=== PATIENT | male | born 1950 | race Caucasian/White ===

== ENCOUNTER 2020-12-03 19:43 | Inpatient (IN) | payer MEDICAID ==
[~2020-12-03] VITALS: Ht 170.2 cm; Wt 74.8 kg
--- NOTE | 2020-12-03 19:56 | Emergency Room Report ---
History of Present Illness General Chief Complaint: To Be Triaged Source: Patient Present Illness HPI 69-year-old male with past medical history of neuropathy presents to the emergency department, brought in by ambulance, for chief complaint of left leg swelling and rash. Patient states that the rash started 3 weeks ago, however the last few days has become more swollen, red, and hot. He endorses chills but denies any fevers, nausea, vomiting, diarrhea, back pain, abdominal pain, chest pain, shortness of breath, melena, hematochezia. He denies injection drug use, trauma or any other issue. Last tetanus shot is unknown. Patient states that he had calf pain in the left leg so was difficult for him to walk. He is unsure of whether he has had previous history of blood clot The patient's symptoms were gradual onset, severity was moderate, duration since 2 days. Quality: Aching, swollen, warm Past medical history: Neuropathy Past surgical history: Orthopedic shoulder surgery Smoking: Denies Alcohol use: Denies Drug use: Denies Review of systems: CONST: No fevers or chills, No night sweats PULMONARY: No productive cough, No shortness of breath CARDIAC: No chest pain, No palpitations GI: No vomiting, No diarrhea , No melena_or_BRBPR : No dysuria, No hematuria, No discharge NEURO: No new_focal_weakness_or_numbness, No confusion, No vision changes 14 point Review of Systems is otherwise negative except per HPI Physical Exam: GENERAL: Awake_alert_ nontoxic, no acute distress Spo2 98% on RA -normal EYES: Extraocular muscles are intact. Conjunctivae clear. Lids without swelling ENT: External nose and ear normal_in_appearance. Oropharynx clear. Head_atrauma tic, Moist_oral_mucosa NECK: No JVD. No meningismus. No thyromegaly. Supple. Trachea midline RESP: Normal respiratory effort. Symmetric rise. No stridor. Clear_to_auscultation_No_rales_No_wheezes CARDIAC: Regular rate and regular rhytm. No_significant pedal edema. ABDOMEN: Soft. Nondistended. Nontender_No_rebound_or_guarding. MSK: Normal muscle tone, without rigidity. SKIN: Left lower extremity swelling and warmth. There is cellulitis to the left mid tibia with open lesion. No palpable crepitus. Positive Homans' sign Otherwise warm and dry. No visible cyanosis or pallor NEUROLOGIC: Alert, oriented x3. Motor_and_sensation_grossly_intact. No truncal ataxia. Gait_normal Psych: Normal mood and affect, normal judgment and insight - COORDINATION OF CARE Case was discussed with: Patient Any labs and imaging that were ordered were interpreted as part of the medical decision making: Medical Decision Making/Plan: Differential diagnosis includes musculoskeletal pain, fracture, dislocation, soft tissue infection such as cellulitis or abscess, necrotizing fasciitis, compartment syndrome, septic arthritis, arterial occlusion, deep venous thrombosis, among others. Patient is afebrile and hemodynamically stable, neurologically intact on examination. He has notable swelling to the left lower extremity, with cellulitis, and draining superficial cutaneous abscess. There is no palpable crepitus. Distally the patient has capillary refill <2 seconds and strong pulses. There is no pallor or pain out of proportion to exam. There is no crepitus or pain out of proportion to exam and the patient is afebrile and nontoxic. No evidence of septic arthritis, necrotizing fasciitis. Tdap was updated. Patient received at broad-spectrum antibiotics. Care signed out to Dr Nino @ 2100 pending labs and duplex ultrasound. Allergies: Coded Allergies: No Known Allergies (Unverified , 12/03/20) Physical Exam Sp02 EP Interpretation: reviewed, normal Medical Decision Making Diagnostic Impression: Primary Impression: Lower extremity cellulitis EKG Diagnostic Results Troponin ordered: Yes When was troponin ordered?: Dec 03, 2020 PA Scribe Text 12-lead EKG (interpreted by me) Time: 2044 Indication: Rhythm analysis Tracing visualized and Interpreted by me. Rhythm: Normal sinus rhythm Rate: 95 bpm QTc: 417 Morphology: No_significant_ST_elevations_or_depressions, No STEMI Impression: Normal_sinus_rhythm_without_significant_abnormality Admit Decision Time: 21:00 Condition: Stable Signed Out To: Marleny Henriquez D.O. Dec 03, 2020 19:56
[2020-12-03] MEDS ORDERED: Cefepime HCl 2 GM in NS 110 ML IV ONE (20:00)
[2020-12-03] MEDS ORDERED: Tetanus/Diptheria/Pertussis IM ONE (20:00)
[2020-12-03] MEDS ORDERED: Acetaminophen 500mg (ES) tab ORAL ONE (20:00)
[2020-12-03] MEDS ORDERED: Vancomycin 1 GM in NS 275 ML IV ONE (20:00)
[2020-12-03] MEDS ORDERED: Sodium Chloride 2,200 ML IVLG ONE (20:00)
--- NOTE | 2020-12-03 20:00 | NUR ---
ED Nurse Note: Patient LAUREN, per EMS, pt called 911 complaining of left leg pain, swelling and redness. Patient is AOx4. calm and cooperative.
[2020-12-03 21:30] LABS: HEMATOCRIT 40.4 % (42.0-52.0); HEMOGLOBIN 13.4 G/DL (14.2-18.0); MEAN CORPUSCULAR VOLUME 91 FL (80-99); PLATELET COUNT 241 K/UL (150-450); RED BLOOD COUNT 4.46 M/UL (4.70-6.10); RED CELL DISTRIBUTION WIDTH 13.5 % (11.6-14.8); WHITE BLOOD COUNT 17.4 K/UL (4.8-10.8)
[2020-12-03 21:31] LABS: BASOPHILS % (AUTO) 0.6 % (0.0-2.0); EOSINOPHILS % (AUTO) 0.2 % (0.0-3.0); LYMPHOCYTES % (AUTO) 6.3 % (20.0-45.0); MONOCYTES % (AUTO) 6.8 % (1.0-10.0); NEUTROPHILS % (AUTO) 86.1 % (45.0-75.0)
[2020-12-03 21:43] LABS: ANION GAP 7 mmol/L (5-15); BLOOD UREA NITROGEN 17 mg/dL (7-18); CALCIUM 9.2 MG/DL (8.5-10.1); CARBON DIOXIDE 29 MMOL/L (21-32); CHLORIDE 102 MMOL/L (98-107); CREATININE 0.8 MG/DL (0.55-1.30); POTASSIUM 3.8 MMOL/L (3.5-5.1); SODIUM 138 MMOL/L (136-145)
[2020-12-03 21:54] LABS: ALANINE AMINOTRANSFERASE 26 U/L (12-78); ALBUMIN 3.5 G/DL (3.4-5.0); ALBUMIN/GLOBULIN RATIO 0.8 (1.0-2.7); ALKALINE PHOSPHATASE 114 U/L (46-116); ASPARTATE AMINO TRANSFERASE 22 U/L (15-37); BILIRUBIN,TOTAL 0.7 MG/DL (0.2-1.0)
--- NOTE | 2020-12-03 22:27 | Diagnostic Imaging Report ---
EXAM: US Duplex Left Lower Extremity Veins CLINICAL HISTORY: DVT TECHNIQUE: Real-time duplex ultrasound scan of the left lower extremity veins integrating B-mode two-dimensional vascular structure, Doppler spectral analysis, color flow Doppler imaging and compression. COMPARISON: No relevant prior studies available. FINDINGS: Deep veins: Unremarkable. No DVT in the visualized common femoral, femoral, proximal deep femoral or popliteal veins. The veins demonstrate normal color flow, are normally compressible, with normal phasic flow and/or augmentation response. Superficial veins: Unremarkable. No thrombus in the visualized great saphenous vein. Soft tissues: Subcutaneous edema. No popliteal cyst. IMPRESSION: 1. No DVT. 2. Subcutaneous edema.
[2020-12-03 22:39] VITALS: BP 117/64
--- NOTE | 2020-12-04 | NUR ---
ED Nurse Note: Patient is resting in bed with eyes closed. No acute distress. Vital signs within normal limits, will continue to monitor.
[2020-12-04 00:21] VITALS: BP 101/56
--- NOTE | 2020-12-04 01:45 | NUR ---
NURSE NOTES: Received report from ER nurse, awaiting patient transfer.
--- NOTE | 2020-12-04 01:55 | NUR ---
TRANSFER TO FLOOR: Patient transferred to as ordered, per Dr. Nino. Report given to NATHANIEL Torres. Belongings given to patient.
--- NOTE | 2020-12-04 02:00 | NUR ---
NURSE NOTES: Patient arrived on floor with belongings. Patient is alert and oriented. Admission orders entered and carried out. Will continue to monitor.
[2020-12-04 04:00] VITALS: BP 107/60
--- NOTE | 2020-12-04 07:18 | NUR ---
NURSE HAND-OFF: Important Events on Shift: New admission Patient Status: sleeping Diet: mechanical soft easy chew Pending Orders: Pending Results/Labs: Pending MD notification: Latest Vital Signs: Temperature 98.7 , Pulse 95 , B/P 107 /60 , Respiratory Rate 20 , O2 SAT 98 , Simple Mask, O2 Flow Rate . Vital Sign Comment: VSS Latest Batista Fall Score: 20 Fall Risk: Low Risk Safety Measures: Call light Within Reach, Bed Alarm , Side Rails Side Rails x2, Bed position Low and Locked. Fall Precautions: Yellow Socks Patient Fall Education Report given to NATHANIEL Posadas.
[2020-12-04 07:22] LABS: HEMATOCRIT 38.2 % (42.0-52.0); HEMOGLOBIN 12.4 G/DL (14.2-18.0); MEAN CORPUSCULAR VOLUME 92 FL (80-99); PLATELET COUNT 212 K/UL (150-450); RED BLOOD COUNT 4.15 M/UL (4.70-6.10); RED CELL DISTRIBUTION WIDTH 14.1 % (11.6-14.8); WHITE BLOOD COUNT 15.4 K/UL (4.8-10.8)
[2020-12-04 07:45] LABS: ALANINE AMINOTRANSFERASE 28 U/L (12-78); ALBUMIN/GLOBULIN RATIO 0.8 (1.0-2.7); ALKALINE PHOSPHATASE 93 U/L (46-116); ANION GAP 5 mmol/L (5-15); ASPARTATE AMINO TRANSFERASE 25 U/L (15-37); BILIRUBIN,TOTAL 0.9 MG/DL (0.2-1.0); BLOOD UREA NITROGEN 15 mg/dL (7-18); CALCIUM 8.3 MG/DL (8.5-10.1); CARBON DIOXIDE 30 MMOL/L (21-32); CHLORIDE 104 MMOL/L (98-107); CREATININE 0.9 MG/DL (0.55-1.30); POTASSIUM 3.9 MMOL/L (3.5-5.1); SODIUM 139 MMOL/L (136-145)
[2020-12-04 08:00] VITALS: BP 112/57
--- NOTE | 2020-12-04 08:37 | Consultation ---
History of Present Illness General Date patient seen: Dec 04, 2020 Present Illness Allergies: Coded Allergies: No Known Allergies (Unverified , 12/03/20) Patient History Healthcare decision maker Resuscitation status Advanced Directive on File Physical Exam Last 24 Hour Vital Signs Date Time Temp Pulse Resp B/P (MAP) Pulse Ox O2 Delivery O2 Flow Rate FiO2 12/04/20 04:00 98.7 95 20 107/60 (76) 98 12/04/20 03:10 Room Air 12/04/20 00:21 99.4 16 101/56 99 Simple Mask 12/03/20 22:39 100.8 18 117/64 100 Room Air 12/03/20 19:52 99.9 104 18 110/54 (72) 98 Room Air Intake and Output 12/03/20 12/04/20 19:00 07:00 Intake Total 200 ml Output Total 100 ml Balance 100 ml Intake Oral 200 ml Output Urine Total 100 ml # Voids 1 Laboratory Tests Test 12/03/20 21:15 12/04/20 06:10 White Blood Count 17.4 K/UL (4.8-10.8) H 15.4 K/UL (4.8-10.8) H Red Blood Count 4.46 M/UL (4.70-6.10) L 4.15 M/UL (4.70-6.10) L Hemoglobin 13.4 G/DL (14.2-18.0) L 12.4 G/DL (14.2-18.0) L Hematocrit 40.4 % (42.0-52.0) L 38.2 % (42.0-52.0) L Mean Corpuscular Volume 91 FL (80-99) 92 FL (80-99) Mean Corpuscular Hemoglobin 30.0 PG (27.0-31.0) 30.0 PG (27.0-31.0) Mean Corpuscular Hemoglobin Concent 33.1 G/DL (32.0-36.0) 32.5 G/DL (32.0-36.0) Red Cell Distribution Width 13.5 % (11.6-14.8) 14.1 % (11.6-14.8) Platelet Count 241 K/UL (150-450) 212 K/UL (150-450) Mean Platelet Volume 6.4 FL (6.5-10.1) L 7.1 FL (6.5-10.1) Neutrophils (%) (Auto) 86.1 % (45.0-75.0) H % (45.0-75.0) Lymphocytes (%) (Auto) 6.3 % (20.0-45.0) L % (20.0-45.0) Monocytes (%) (Auto) 6.8 % (1.0-10.0) % (1.0-10.0) Eosinophils (%) (Auto) 0.2 % (0.0-3.0) % (0.0-3.0) Basophils (%) (Auto) 0.6 % (0.0-2.0) % (0.0-2.0) Prothrombin Time 11.4 SEC (9.30-11.50) Prothromb Time International Ratio 1.0 (0.9-1.1) Activated Partial Thromboplast Time 27 SEC (23-33) Sodium Level 138 MMOL/L (136-145) 139 MMOL/L (136-145) Potassium Level 3.8 MMOL/L (3.5-5.1) 3.9 MMOL/L (3.5-5.1) Chloride Level 102 MMOL/L (98-107) 104 MMOL/L (98-107) Carbon Dioxide Level 29 MMOL/L (21-32) 30 MMOL/L (21-32) Anion Gap 7 mmol/L (5-15) 5 mmol/L (5-15) Blood Urea Nitrogen 17 mg/dL (7-18) 15 mg/dL (7-18) Creatinine 0.8 MG/DL (0.55-1.30) 0.9 MG/DL (0.55-1.30) Estimat Glomerular Filtration Rate > 60 mL/min (>60) > 60 mL/min (>60) Glucose Level 103 MG/DL (74-106) 92 MG/DL (74-106) Lactic Acid Level 0.80 mmol/L (0.4-2.0) Calcium Level 9.2 MG/DL (8.5-10.1) 8.3 MG/DL (8.5-10.1) L Total Bilirubin 0.7 MG/DL (0.2-1.0) 0.9 MG/DL (0.2-1.0) Aspartate Amino Transf (AST/SGOT) 22 U/L (15-37) 25 U/L (15-37) Alanine Aminotransferase (ALT/SGPT) 26 U/L (12-78) 28 U/L (12-78) Alkaline Phosphatase 114 U/L (46-116) 93 U/L (46-116) Pro-B-Type Natriuretic Peptide 117 pg/mL (0-125) Total Protein 7.7 G/DL (6.4-8.2) 7.0 G/DL (6.4-8.2) Albumin 3.5 G/DL (3.4-5.0) 3.0 G/DL (3.4-5.0) L Globulin 4.2 g/dL 4.0 g/dL Albumin/Globulin Ratio 0.8 (1.0-2.7) L 0.8 (1.0-2.7) L Neutrophils % (Manual) Pending Lymphocytes % (Manual) Pending Platelet Estimate Pending Platelet Morphology Pending Microbiology Date/Time Source Procedure Growth Status 12/04/20 01:55 Rectal Mucosa Received Height (Feet): 5 Height (Inches): 7.00 Weight (Pounds): 165 Medications Current Medications Medications (Trade) Dose Ordered Sig/Jeny Route PRN Reason Start Time Stop Time Status Last Admin Dose Admin Acetaminophen (Tylenol) 500 mg Q4H PRN ORAL Temp >100.5/mild pain 1-3 12/04/20 00:00 01/03/21 00:00 Assessment/Plan Assessment/Plan: (1) Left LE pain (2) Cellulitis seen dictated Serafin Grubbs Dec 04, 2020 08:37
--- NOTE | 2020-12-04 11:21 | Consultation ---
History of Present Illness General Date patient seen: Dec 04, 2020 Reason for Hospitalization: Lower Extremity Injury Present Illness HPI this is a pleasant 69-year-old male with past medical history of neuropathy in lower extremities for many years who presents to the emergency department at [facility] brought in by ambulance for chief complaint of left leg swelling and rash. Patient states that the rash started 3 weeks ago, however the last few days has become more swollen, red, and hot. He endorses chills but denies any fevers, nausea, vomiting, diarrhea, back pain, abdominal pain, chest pain, shortness of breath, melena, hematochezia. He denies injection drug use, trauma or any other issue. Last tetanus shot is unknown. Patient states that he had calf pain in the left leg so was difficult for him to walk. He is unsure of whether he has had previous history of blood clot. The patient's symptoms were gradual onset, severity was moderate, duration since 2 days. Patient states that he is homeless and is very difficult for her to take care of himself with such problems therefore he came in for evaluation. No nausea vomiting fever chills. Denies any trauma. States that he is unsure if there is an ulcer as it is difficult for him to evaluate or care for the wound currently. Surgery called to evaluate assist with care patient seen patient evaluated chart reviewed Allergies: Coded Allergies: No Known Allergies (Unverified , 12/03/20) COVID-19 Screening Contact w/high risk pt: No Experienced COVID-19 symptoms?: No Patient History History Provided By: Patient, Medical Record, PMD Healthcare decision maker Resuscitation status Advanced Directive on File Past Medical/Surgical History Past Medical/Surgical History: (1) Injury of lower extremity (2) Lower extremity cellulitis Review of Systems Review of Symptoms General ROS: no weight loss or fever Psychological ROS: no depression or mood changes, no memory loss Ophthalmic ROS: no visual changes or eye irritation ENT ROS: no nasal congestion, hearing loss, dizziness Allergy and Immunology ROS: no allergic symptoms or urticaria Hematological and Lymphatic ROS: no swollen glands, unusual bleeding or bruising Endocrine ROS: no polyuria, polydipsia, weight changes, temperature intolerance Respiratory ROS: no cough, shortness of breath, or wheezing Cardiovascular ROS: no chest pain or dyspnea on exertion Gastrointestinal ROS: denies abdominal pain, bright red blood in stool. Musculoskeletal ROS: no myalgias or arthralgias Neurological ROS: no TIA or stroke symptoms Dermatological ROS: no new or changing skin lesions, rashes or pruritis Physical Exam Physical Exam General appearance: alert, cooperative, no distress, appears stated age Head: Normocephalic, without obvious abnormality, atraumatic Eyes: conjunctivae/corneas clear. PERRL, EOM's intact. Fundi benign Throat: Lips, mucosa, and tongue normal. Teeth and gums normal Neck: supple, symmetrical, trachea midline, no adenopathy, thyroid: not enlarged, symmetric, no tenderness/mass/nodules, no carotid bruit and no JVD Lungs: clear to auscultation bilaterally Heart: regular rate and rhythm, S1, S2 normal, no murmur, click, rub or gallop Abdomen: soft, non-tender. Bowel sounds normal. No masses, no organomegaly Extremities: extremities left lower extremity cellulitis and edema also noted medial aspect Pulses: 2+ and symmetric Skin: Skin color, texture, turgor normal. No rashes or lesions Neurologic: Grossly normal Last 24 Hour Vital Signs Date Time Temp Pulse Resp B/P (MAP) Pulse Ox O2 Delivery O2 Flow Rate FiO2 12/04/20 04:00 98.7 95 20 107/60 (76) 98 12/04/20 03:10 Room Air 12/04/20 00:21 99.4 16 101/56 99 Simple Mask 12/03/20 22:39 100.8 18 117/64 100 Room Air 12/03/20 19:52 99.9 104 18 110/54 (72) 98 Room Air Intake and Output 12/03/20 12/04/20 19:00 07:00 Intake Total 200 ml Output Total 100 ml Balance 100 ml Intake Oral 200 ml Output Urine Total 100 ml # Voids 1 Laboratory Tests Test 12/03/20 21:15 12/04/20 06:10 White Blood Count 17.4 K/UL (4.8-10.8) H 15.4 K/UL (4.8-10.8) H Red Blood Count 4.46 M/UL (4.70-6.10) L 4.15 M/UL (4.70-6.10) L Hemoglobin 13.4 G/DL (14.2-18.0) L 12.4 G/DL (14.2-18.0) L Hematocrit 40.4 % (42.0-52.0) L 38.2 % (42.0-52.0) L Mean Corpuscular Volume 91 FL (80-99) 92 FL (80-99) Mean Corpuscular Hemoglobin 30.0 PG (27.0-31.0) 30.0 PG (27.0-31.0) Mean Corpuscular Hemoglobin Concent 33.1 G/DL (32.0-36.0) 32.5 G/DL (32.0-36.0) Red Cell Distribution Width 13.5 % (11.6-14.8) 14.1 % (11.6-14.8) Platelet Count 241 K/UL (150-450) 212 K/UL (150-450) Mean Platelet Volume 6.4 FL (6.5-10.1) L 7.1 FL (6.5-10.1) Neutrophils (%) (Auto) 86.1 % (45.0-75.0) H % (45.0-75.0) Lymphocytes (%) (Auto) 6.3 % (20.0-45.0) L % (20.0-45.0) Monocytes (%) (Auto) 6.8 % (1.0-10.0) % (1.0-10.0) Eosinophils (%) (Auto) 0.2 % (0.0-3.0) % (0.0-3.0) Basophils (%) (Auto) 0.6 % (0.0-2.0) % (0.0-2.0) Prothrombin Time 11.4 SEC (9.30-11.50) Prothromb Time International Ratio 1.0 (0.9-1.1) Activated Partial Thromboplast Time 27 SEC (23-33) Sodium Level 138 MMOL/L (136-145) 139 MMOL/L (136-145) Potassium Level 3.8 MMOL/L (3.5-5.1) 3.9 MMOL/L (3.5-5.1) Chloride Level 102 MMOL/L (98-107) 104 MMOL/L (98-107) Carbon Dioxide Level 29 MMOL/L (21-32) 30 MMOL/L (21-32) Anion Gap 7 mmol/L (5-15) 5 mmol/L (5-15) Blood Urea Nitrogen 17 mg/dL (7-18) 15 mg/dL (7-18) Creatinine 0.8 MG/DL (0.55-1.30) 0.9 MG/DL (0.55-1.30) Estimat Glomerular Filtration Rate > 60 mL/min (>60) > 60 mL/min (>60) Glucose Level 103 MG/DL (74-106) 92 MG/DL (74-106) Lactic Acid Level 0.80 mmol/L (0.4-2.0) Calcium Level 9.2 MG/DL (8.5-10.1) 8.3 MG/DL (8.5-10.1) L Total Bilirubin 0.7 MG/DL (0.2-1.0) 0.9 MG/DL (0.2-1.0) Aspartate Amino Transf (AST/SGOT) 22 U/L (15-37) 25 U/L (15-37) Alanine Aminotransferase (ALT/SGPT) 26 U/L (12-78) 28 U/L (12-78) Alkaline Phosphatase 114 U/L (46-116) 93 U/L (46-116) Pro-B-Type Natriuretic Peptide 117 pg/mL (0-125) Total Protein 7.7 G/DL (6.4-8.2) 7.0 G/DL (6.4-8.2) Albumin 3.5 G/DL (3.4-5.0) 3.0 G/DL (3.4-5.0) L Globulin 4.2 g/dL 4.0 g/dL Albumin/Globulin Ratio 0.8 (1.0-2.7) L 0.8 (1.0-2.7) L Differential Total Cells Counted 100 Neutrophils % (Manual) 87 % (45-75) H Lymphocytes % (Manual) 5 % (20-45) L Monocytes % (Manual) 8 % (1-10) Eosinophils % (Manual) 0 % (0-3) Basophils % (Manual) 0 % (0-2) Band Neutrophils 0 % (0-8) Platelet Estimate Adequate Platelet Morphology Normal Anisocytosis 1+ Microbiology Date/Time Source Procedure Growth Status 12/04/20 01:55 Rectal Mucosa Received Height (Feet): 5 Height (Inches): 7.00 Weight (Pounds): 165 Medications Current Medications Medications (Trade) Dose Ordered Sig/Jeyn Route PRN Reason Start Time Stop Time Status Last Admin Dose Admin Acetaminophen (Tylenol) 500 mg Q4H PRN ORAL Temp >100.5/mild pain 1-3 12/04/20 00:00 01/03/21 00:00 Assessment/Plan Problem List: (1) Injury of lower extremity ICD Codes: S89.90XA - Unspecified injury of unspecified lower leg, initial encounter SNOMED: 008963958 (2) Lower extremity cellulitis Assessment & Plan: Very pleasant 70-year-old male with worsening left lower extremity cellulitis edema and identifiable ulcer on the medial aspect. Patient denies any trauma and unsure etiology of ulcer but on the medial aspect of the distal leg there is a 3 cm x 4 cm eschar with no abscess no drainage. Wound likely initial etiology of the infection potentially related to trauma. Patient has erythema tenderness warmth induration of the distal leg to the ankle. The foot seems fairly spared. Midpoint apex seems to be the wound identified on the medial aspect. Does not track higher than the mid leg. Tender difficult to walk muscle compartments okay. Wound washed with normal saline. Apply Thera honey Optifoam dressing. Keep lower extremity elevated while in bed. Okay to ambulate. IV antibiotics per PCP or infectious disease. Will need some time for resolving cellulitis. No abscess noted at this time. No surgical intervention planned. Will monitor for potential abscess formation phlegmon. Thank you for let me participate in patient's care will follow with recommendations. ICD Codes: L03.119 - Cellulitis of unspecified part of limb SNOMED: [id number] AdalbertoshmuelVaughn Dec 04, 2020 11:21
[2020-12-04 12:00] VITALS: BP 121/66
--- NOTE | 2020-12-04 13:52 | Cardiac Electrophysiology PN ---
Subjective Subjective [id number] Objective Last 24 Hour Vital Signs Date Time Temp Pulse Resp B/P (MAP) Pulse Ox O2 Delivery O2 Flow Rate FiO2 12/04/20 04:00 98.7 95 20 107/60 (76) 98 12/04/20 03:10 Room Air 12/04/20 00:21 99.4 16 101/56 99 Simple Mask 12/03/20 22:39 100.8 18 117/64 100 Room Air 12/03/20 19:52 99.9 104 18 110/54 (72) 98 Room Air Intake and Output 12/03/20 12/04/20 19:00 07:00 Intake Total 200 ml Output Total 100 ml Balance 100 ml Intake Oral 200 ml Output Urine Total 100 ml # Voids 1 Laboratory Tests Test 12/03/20 21:15 12/04/20 06:10 White Blood Count 17.4 K/UL (4.8-10.8) H 15.4 K/UL (4.8-10.8) H Red Blood Count 4.46 M/UL (4.70-6.10) L 4.15 M/UL (4.70-6.10) L Hemoglobin 13.4 G/DL (14.2-18.0) L 12.4 G/DL (14.2-18.0) L Hematocrit 40.4 % (42.0-52.0) L 38.2 % (42.0-52.0) L Mean Corpuscular Volume 91 FL (80-99) 92 FL (80-99) Mean Corpuscular Hemoglobin 30.0 PG (27.0-31.0) 30.0 PG (27.0-31.0) Mean Corpuscular Hemoglobin Concent 33.1 G/DL (32.0-36.0) 32.5 G/DL (32.0-36.0) Red Cell Distribution Width 13.5 % (11.6-14.8) 14.1 % (11.6-14.8) Platelet Count 241 K/UL (150-450) 212 K/UL (150-450) Mean Platelet Volume 6.4 FL (6.5-10.1) L 7.1 FL (6.5-10.1) Neutrophils (%) (Auto) 86.1 % (45.0-75.0) H % (45.0-75.0) Lymphocytes (%) (Auto) 6.3 % (20.0-45.0) L % (20.0-45.0) Monocytes (%) (Auto) 6.8 % (1.0-10.0) % (1.0-10.0) Eosinophils (%) (Auto) 0.2 % (0.0-3.0) % (0.0-3.0) Basophils (%) (Auto) 0.6 % (0.0-2.0) % (0.0-2.0) Prothrombin Time 11.4 SEC (9.30-11.50) Prothromb Time International Ratio 1.0 (0.9-1.1) Activated Partial Thromboplast Time 27 SEC (23-33) Sodium Level 138 MMOL/L (136-145) 139 MMOL/L (136-145) Potassium Level 3.8 MMOL/L (3.5-5.1) 3.9 MMOL/L (3.5-5.1) Chloride Level 102 MMOL/L (98-107) 104 MMOL/L (98-107) Carbon Dioxide Level 29 MMOL/L (21-32) 30 MMOL/L (21-32) Anion Gap 7 mmol/L (5-15) 5 mmol/L (5-15) Blood Urea Nitrogen 17 mg/dL (7-18) 15 mg/dL (7-18) Creatinine 0.8 MG/DL (0.55-1.30) 0.9 MG/DL (0.55-1.30) Estimat Glomerular Filtration Rate > 60 mL/min (>60) > 60 mL/min (>60) Glucose Level 103 MG/DL (74-106) 92 MG/DL (74-106) Lactic Acid Level 0.80 mmol/L (0.4-2.0) Calcium Level 9.2 MG/DL (8.5-10.1) 8.3 MG/DL (8.5-10.1) L Total Bilirubin 0.7 MG/DL (0.2-1.0) 0.9 MG/DL (0.2-1.0) Aspartate Amino Transf (AST/SGOT) 22 U/L (15-37) 25 U/L (15-37) Alanine Aminotransferase (ALT/SGPT) 26 U/L (12-78) 28 U/L (12-78) Alkaline Phosphatase 114 U/L (46-116) 93 U/L (46-116) Pro-B-Type Natriuretic Peptide 117 pg/mL (0-125) Total Protein 7.7 G/DL (6.4-8.2) 7.0 G/DL (6.4-8.2) Albumin 3.5 G/DL (3.4-5.0) 3.0 G/DL (3.4-5.0) L Globulin 4.2 g/dL 4.0 g/dL Albumin/Globulin Ratio 0.8 (1.0-2.7) L 0.8 (1.0-2.7) L Differential Total Cells Counted 100 Neutrophils % (Manual) 87 % (45-75) H Lymphocytes % (Manual) 5 % (20-45) L Monocytes % (Manual) 8 % (1-10) Eosinophils % (Manual) 0 % (0-3) Basophils % (Manual) 0 % (0-2) Band Neutrophils 0 % (0-8) Platelet Estimate Adequate Platelet Morphology Normal Anisocytosis 1+ Microbiology Date/Time Source Procedure Growth Status 12/04/20 01:55 Rectal Mucosa Received Damon Abraham MD Dec 04, 2020 13:52
--- NOTE | 2020-12-04 14:14 | Consultation ---
DATE OF CONSULTATION: 12/04/2020 INFECTIOUS DISEASES CONSULTATION CONSULTING PHYSICIAN: Donte Blum MD PRIMARY ATTENDING PHYSICIAN: Surekha Aguilar MD REASON FOR CONSULTATION: Left leg cellulitis and sepsis. HISTORY OF PRESENT ILLNESS: This is a 70-year-old white male admitted yesterday complaining of left leg swelling, redness, hotness, rash. The patient had couple of weeks of the symptoms but it increased especially pain. The patient has leukocytosis of 17.4 in the ER and had fever up to 100.8, had tachycardia 104. PAST MEDICAL HISTORY: Chronic neuropathy of legs and chronic back pain likely secondary to disk disorder. He is homeless. ALLERGIES: No known drug allergies. MEDICATIONS: Get a dose of vancomycin and cefepime in the ER last night. Currently on Tylenol. SOCIAL HISTORY: Single. Homeless. Denies alcohol, drug abuse, or smoking. REVIEW OF SYSTEMS: As per history of present illness. PHYSICAL EXAMINATION: VITAL SIGNS: Temperature 98.7, pulse 95, blood pressure 107/60. GENERAL APPEARANCE: No acute distress. Seems to have normal weight. HEAD AND NECK: He has poor dentition. HEART: Normal rate. LUNGS: Clear. ABDOMEN: Soft. EXTREMITIES: Edema, erythema in the left leg. There is a scab in the inner surface of the left leg without discharge. NEUROLOGIC: Awake, alert, oriented x3. LABORATORY AND DIAGNOSTIC DATA: WBC 15.4, hemoglobin 12.4, hematocrit 38.2, platelets 212. Sodium 139, potassium 3.9, chloride 104, bicarb 30, BUN 15, creatinine 0.9, glucose 92. Venous duplex of legs did not show any DVT. IMPRESSION: Sepsis with fever, leukocytosis, and tachycardia. Seems to have cellulitis of left leg that is mostly nonpurulent, has chronic neuropathy, has BPH. He is homeless. RECOMMENDATION: Continue vancomycin. We will follow up clinical course and cultures. At the end of my exam, I thank Dr. Aguilar, for involving me in the care of this patient. Donte Blum M.D. DR: Patel JOB#: [id number] CC: GUSTAVO
[2020-12-04 16:00] VITALS: BP 110/64
[2020-12-04] MEDS: Vancomycin 750 MG in NS 275 ML IVPB SCH (16:00)
--- NOTE | 2020-12-04 16:29 | Consultation ---
DATE OF CONSULTATION: 12/04/2020 CARDIOLOGY CONSULTATION CONSULTING PHYSICIAN: Damon Abraham MD REFERRING PHYSICIAN: Surekha Aguilar MD REASON FOR CONSULTATION: Lower extremity edema and cellulitis. 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 The rash started about 3 weeks ago but got worse over the last few days and is red and hot. The patient also has had chills but denies fever, nausea, or vomiting. The patient denies any syncope, presyncope, prior myocardial infarction, or coronary artery disease. The patient was admitted and Cardiology consultation was obtained for further evaluation as he was also tachycardic. REVIEW OF SYSTEMS: Negative other than what is mentioned in the history of present illness. PAST MEDICAL HISTORY: As mentioned above. FAMILY HISTORY: Noncontributory. SOCIAL HISTORY: Denies smoking or drinking alcohol. PAST SURGICAL HISTORY: Include orthopedic shoulder surgery. PHYSICAL EXAMINATION: VITAL SIGNS: Blood pressure of 107/60, pulse 95, respirations 20, temperature 98.7. Maximum temperature was 100.8. HEAD AND NECK: Shows no JVD. LUNGS: Clear. CARDIOVASCULAR: Regular S1 and S2 with no gallop. ABDOMEN: Soft. EXTREMITIES: Cellulitis of the left leg. LABORATORY AND DIAGNOSTIC DATA: White count was initially 17.4, hemoglobin 13.2, hematocrit of 40, and platelet was 241. Sodium was 139, potassium 3.9, BUN of 15, creatinine 0.9. Lactic acid is 0.8. ASSESSMENT AND PLAN: 1. Tachycardia due to sinus tachycardia due to sepsis, white count 32306. The patient already on IV vancomycin. I will get an echocardiogram to make sure the patient has not developed any endocarditis. 2. Elevated white count likely due to cellulitis. 3. History of shoulder surgery. Thank you very much for allowing me to participate in the care of this patient. Please do not hesitate to contact me for any questions regarding my evaluation. Sincerely, Damon Abraham M.D. DR: Francie JOB#: [id number] CC:
--- NOTE | 2020-12-04 16:34 | NUR ---
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 100.8 HR 104 RR 18 B/P 110/54 WBC 17.4 VENOUS DUPLEX= No DVT. SUBCUTANEOUS EDEMA. IS: VANCO IV CEFEPIME IV IV BOLUS NS X 1 LITER TYLENOL PO ADMITTED TO MED/SURG @ 0215 MED/SURG STATUS DCP RETURN HOME
[2020-12-04 20:00] VITALS: BP 107/59
--- NOTE | 2020-12-04 23:29 | History and Physical Report ---
DATE OF ADMISSION: 12/03/2020 HISTORY OF PRESENT ILLNESS: Patient is admitted for lower extremity cellulitis for about 1 month. Patient is complaining of pain and edema that is getting worse in the left lower extremity. It is going on for a month. Patient is homeless. Denies nausea, vomiting, or diarrhea. No fever or chills. Denies shortness of breath. Denies cough. Denies headache. PAST MEDICAL HISTORY: Significant for GERD. PAST SURGICAL HISTORY: Jaw surgery and shoulder surgery. FAMILY HISTORY: Noncontributory. MEDICATIONS: None. SOCIAL HISTORY: He is homeless. Denies history of drug abuse. Denies history of alcohol abuse. Denies history of smoking. REVIEW OF SYSTEMS: HEENT: Denies headaches. RESPIRATORY: Denies shortness of breath. Denies cough. CARDIOVASCULAR: Denies chest pain. GASTROINTESTINAL: Denies nausea, vomiting, or diarrhea. EXTREMITIES: Reports worsening edema and pain on the left lower extremity and rash for the past month. CENTRAL NERVOUS SYSTEM: Denies change in speech pattern. PHYSICAL EXAMINATION: VITAL SIGNS: Temperature 98.7, pulse is 85, blood pressure is 112/57. HEENT: PERRLA. NECK: Supple. No lymphadenopathy. CHEST: Clear to auscultation. CARDIOVASCULAR: Regular rate and rhythm. No murmurs or extra sounds. GASTROINTESTINAL: Soft, nontender, nondistended. No organomegaly. EXTREMITIES: Has left lower leg erythema and edema and pain to touch under left lower extremity below the knee. Dorsal pedis pulses are present. Moves all 4 extremities. Sensory intact to light touch. NEUROLOGIC: Cranial nerves II through XII are intact. LABORATORY DATA: WBC of 17.4, hemoglobin 13.4, platelets 241. Sodium 138, potassium 3.8, BUN of 17, creatinine 0.8. ASSESSMENT AND PLAN: Cellulitis of lower extremity. I have basically consulted Dr. Flores for pain management, Dr. Donte Blum for Infectious Disease, and Dr. Abraham for the tachycardia that the patient originally has. Patient also has WBC of 17 originally. is consulted to rule out any abscess in the lower extremities. Surekha Aguilar M.D. DR: ANALY JOB#: [id number] CC:
[2020-12-05] VITALS: BP 108/53
[2020-12-05] MEDS: Vancomycin 750 MG in NS 275 ML IVPB SCH ×2 (02:39→15:00)
[2020-12-05 04:00] VITALS: BP 107/56
[2020-12-05] MEDS: Acetaminophen 500mg (ES) tab ORAL PRN (04:26)
--- NOTE | 2020-12-05 05:17 | NUR ---
NURSE HAND-OFF: Important Events on Shift: no significant changes noted this shift; complained of mild pain, tylenol given and an ice pack per patient's request. no falls or other complaints received. Patient Status: stable Diet: see orders Pending Orders: see orders Pending Results/Labs:see orders Pending MD notification: see chart Latest Vital Signs: Temperature 98.6 , Pulse 77 , B/P 107 /56 , Respiratory Rate 20 , O2 SAT 97 , Simple Mask, O2 Flow Rate . Vital Sign Comment: see above Latest Batista Fall Score: 35 Fall Risk: Medium Risk Safety Measures: Call light Within Reach, Bed Alarm Zone 1, Side Rails Side Rails x2, Bed position Low and Locked. Fall Precautions: Patient Fall Education Report will be given to NATHANIEL Ward.
--- NOTE | 2020-12-05 07:45 | NUR ---
NURSE NOTES: Received report from NATHANIEL Rivera. Pt in bed, awake, a&ox4. Breathing even and unlabored on RA. No c/o pain at this time. IV intact and patent. Bed in low and locked. Call light within reach. Will continue to monitor.
[2020-12-05 08:00] VITALS: BP 114/69
--- NOTE | 2020-12-05 08:36 | General Progress Note ---
Subjective Date patient seen: Dec 05, 2020 Time patient seen: 07:00 - am Constitutional: Reports: no symptoms, weakness HEENT: Reports: no symptoms Cardiovascular: Reports: no symptoms Respiratory: Reports: no symptoms Gastrointestinal/Abdominal: Reports: no symptoms Genitourinary: Reports: no symptoms Neurologic/Psychiatric: Reports: no symptoms Endocrine: Reports: no symptoms Hematologic/Lymphatic: Reports: no symptoms Allergies: Coded Allergies: No Known Allergies (Unverified , 12/03/20) Subjective Patient in bed and showing no signs of pain or distress. no new complaints at this time Objective Last 24 Hour Vital Signs Date Time Temp Pulse Resp B/P (MAP) Pulse Ox O2 Delivery O2 Flow Rate FiO2 12/05/20 04:00 98.5 77 20 107/56 (73) 97 12/05/20 00:00 98.6 81 20 108/53 (71) 95 12/04/20 21:00 Room Air 12/04/20 20:00 98.4 89 20 107/59 (75) 96 12/04/20 16:00 99.4 89 20 110/64 (79) 96 12/04/20 12:00 100.4 94 19 121/66 (84) 96 12/04/20 09:00 Room Air Intake and Output 12/04/20 12/05/20 19:00 07:00 Intake Total 600 ml 606.663 ml Output Total 650 ml 550 ml Balance -50 ml 56.663 ml Intake Oral 600 ml 240 ml IV Total 366.663 ml Output Urine Total 650 ml 550 ml Height (Feet): 5 Height (Inches): 7.00 Weight (Pounds): 165 General Appearance: no apparent distress, alert EENT: PERRL/EOMI, normal ENT inspection Neck: normal alignment, supple Cardiovascular: normal rate, regular rhythm Respiratory/Chest: chest wall non-tender, lungs clear Abdomen: non tender, soft Extremities: swelling Edema: trace edema Neurologic: alert, oriented x 3 Assessment/Plan Assessment/Plan: (1) Left LE pain (2) Cellulitis Patient to be continued on Tylenol D/w Dr. Flores and he concurred. Serafin Grubbs Dec 05, 2020 08:36
--- NOTE | 2020-12-05 10:00 | Surgery Progress Note ---
Surgery Progress Note Subjective Symptoms: improved, tolerating diet, voiding well, passing flatus, pain decreased Objective Last 24 Hour Vital Signs Date Time Temp Pulse Resp B/P (MAP) Pulse Ox O2 Delivery O2 Flow Rate FiO2 12/05/20 04:00 98.5 77 20 107/56 (73) 97 12/05/20 00:00 98.6 81 20 108/53 (71) 95 12/04/20 21:00 Room Air 12/04/20 20:00 98.4 89 20 107/59 (75) 96 12/04/20 16:00 99.4 89 20 110/64 (79) 96 12/04/20 12:00 100.4 94 19 121/66 (84) 96 I&O Intake and Output 12/04/20 12/05/20 19:00 07:00 Intake Total 600 ml 606.663 ml Output Total 650 ml 550 ml Balance -50 ml 56.663 ml Intake Oral 600 ml 240 ml IV Total 366.663 ml Output Urine Total 650 ml 550 ml Dressing: dry Wound: clean Cardiovascular: RSR Respiratory: clear Abdomen: soft, flat, non-tender, present bowel sounds, non-distended Extremities: edema, tenderness, no cyanosis, pulses, other Plan Problems: (1) Injury of lower extremity (2) Lower extremity cellulitis Assessment & Plan: Very pleasant 70-year-old male with worsening left lower ext remity cellulitis edema and identifiable ulcer on the medial aspect. Patient denies any trauma and unsure etiology of ulcer but on the medial aspect of the distal leg there is a 3 cm x 4 cm eschar with no abscess no drainage. Wound likely initial etiology of the infection potentially related to trauma. Patient has erythema tenderness warmth induration of the distal leg to the ankle. The foot seems fairly spared. Midpoint apex seems to be the wound identified on the medial aspect. Does not track higher than the mid leg. Tender difficult to walk muscle compartments okay. Wound washed with normal saline. Apply Thera honey Optifoam dressing. Keep lower extremity elevated while in bed. Okay to ambulate. IV antibiotics per PCP or infectious disease. Will need some time for resolving cellulitis. No abscess noted at this time. No surgical intervention planned. Will monitor for potential abscess formation phlegmon. Thank you for let me participate in patient's care will follow with recommendations. doing well cont current tx Vaughn Vasquez Dec 05, 2020 10:00
--- NOTE | 2020-12-05 10:14 | Consultation ---
DATE OF CONSULTATION: 12/04/2020 PAIN MANAGEMENT CONSULTATION CONSULTING PHYSICIAN: Tashi Flores MD REFERRING PHYSICIAN: Surekha Aguilar MD PHYSICIAN CERTIFIED TUMOR REGISTRAR: YFN Herron CHIEF COMPLAINT: Left foot pain. HISTORY OF PRESENT ILLNESS: The patient is a 70-year-old male who is being seen on Med/Surg floor of [facility] for initial pain management consultation. The patient reports that he has been having left foot pain. It is an acute and rating his pain at 2/10 at this time. He is describing it as sharp pain, increased with movement and is reduced with rest. Upon admission, he was found to have cellulitis. He is on Tylenol as needed. We were consulted so the patient will have adequate pain control while here in the hospital. PAST MEDICAL HISTORY: Denies. PAST SURGICAL HISTORY: Jaw surgery. MEDICATIONS: No medication as an outpatient. ALLERGIES: No known drug allergies. SOCIAL HISTORY: Denies history of smoking tobacco, drinking alcohol, or IV drug abuse. REVIEW OF SYSTEMS: Denies rash, fever, chills, sweating, dizziness, drowsiness, blurred vision, sore throat, or change in his weight. No shortness of breath, chest pain, or palpitations. No nausea, vomiting, diarrhea, or blood in stool or urine. No dysuria. PHYSICAL EXAMINATION: GENERAL: Alert, awake, and oriented. VITAL SIGNS: Blood pressure 128/56, heart rate 69, oxygen saturation 98%, respiratory rate 20, and temperature 99 degrees Fahrenheit. HEENT: PERRLA. NECK: Range of motion is limited due to the patient's condition. LUNGS: Decreased breath sounds bilaterally. HEART: Regular. ABDOMEN: Soft, nontender. BACK: Range of motion is decreased EXTREMITIES: Upper and lower extremity range of motion is decreased due to patient pain and condition. No cyanosis no clubbing with edema noted in the left lower extremity. ASSESSMENT AND PLAN: This is a 70-year-old male with left lower extremity pain due to cellulitis. The patient will be continued on Tylenol as needed. The patient was discussed with Dr. Flores, and Dr. Flores concurred. We will follow the patient. Thank you very much for the courtesy of this consultation. Tashi Flores M.D. YFN Herron DR: CHRIS JOB#: [id number] CC: GUSTAVO
[2020-12-05 12:00] VITALS: BP 105/66
--- NOTE | 2020-12-05 12:20 | NUR ---
GLOBE CHANGER NOTE SW met w/ pt and discussed homelessness. PT presents as A&O4x. Pt has been homeless over a year, mostly staying near [facility]. Pt was ambulatory w/o DME and independent w/ ADLs prior to admission. Pt is single, never and has no children. Pt does not have any family/friend support. Pt denies substance abuse/ETOH abuse. PT declined counseling/tx intervention on substance abuse. Pt reports hx of Depression, currently not receiving outpatient tx. Pt declined this SW to schedule the appt for him. SW provided mental health resource and encouraged pt to receive the service. Pt receives SSI and has $800 left for this month. Pt shares that he lost his ID, thus he can only access $100/mo. PT reports he will return to his preferred area, will check the craiglist to rent a room. SW offered assistance including board and care and independent living placement. Pt declined the assistance, wanting to find his own place to stay. SW explained negative ramification of unlicensed facilities/self-directing. Pt verbalized understanding. SW provided the community resource packet and the list of [facility] shelters. PT accepted such resource. Pt will dc own resource to preferred location on DC date. SW to F/U as needed. PT evaluation is recommended to evaluate pt's mobility.
--- NOTE | 2020-12-05 12:29 | Cardiac Electrophysiology PN ---
Assessment/Plan Assessment/Plan 1. Tachycardia due to sinus tachycardia due to sepsis, white count 39270. The patient already on IV vancomycin. EF 45%. No vegetaion reported 2. Elevated white count likely due to cellulitis. 3. History of shoulder surgery. Subjective Subjective Agitated and argumentative with staff. On iv Abx Objective Last 24 Hour Vital Signs Date Time Temp Pulse Resp B/P (MAP) Pulse Ox O2 Delivery O2 Flow Rate FiO2 12/05/20 09:00 Room Air 12/05/20 08:00 96.7 71 20 114/69 (84) 97 12/05/20 04:00 98.5 77 20 107/56 (73) 97 12/05/20 00:00 98.6 81 20 108/53 (71) 95 12/04/20 21:00 Room Air 12/04/20 20:00 98.4 89 20 107/59 (75) 96 12/04/20 16:00 99.4 89 20 110/64 (79) 96 Intake and Output 12/04/20 12/05/20 19:00 07:00 Intake Total 600 ml 606.663 ml Output Total 650 ml 550 ml Balance -50 ml 56.663 ml Intake Oral 600 ml 240 ml IV Total 366.663 ml Output Urine Total 650 ml 550 ml Microbiology Date/Time Source Procedure Growth Status 12/04/20 01:55 Rectal Mucosa Received 12/03/20 21:15 Blood Blood Culture - Preliminary NO GROWTH AFTER 24 HOURS Resulted 12/03/20 21:00 Blood Blood Culture - Preliminary NO GROWTH AFTER 24 HOURS Resulted Objective HEAD AND NECK: Shows no JVD. LUNGS: Clear. CARDIOVASCULAR: Regular S1 and S2 with no gallop. ABDOMEN: Soft. EXTREMITIES: Cellulitis of the left leg. Damon Abraham MD Dec 05, 2020 12:29
--- NOTE | 2020-12-05 13:25 | Infectious Diseases Prog Note ---
Assessment/Plan Assessment/Plan IMPRESSION: Sepsis, improving Cellulitis of left leg that is mostly nonpurulent, Chronic neuropathy, BPH. Homeless. RECOMMENDATION: Continue vancomycin Subjective ROS Limited/Unobtainable: Yes Allergies: Coded Allergies: No Known Allergies (Unverified , 12/03/20) Objective Last 24 Hour Vital Signs Date Time Temp Pulse Resp B/P (MAP) Pulse Ox O2 Delivery O2 Flow Rate FiO2 12/05/20 09:00 Room Air 12/05/20 08:00 96.7 71 20 114/69 (84) 97 12/05/20 04:00 98.5 77 20 107/56 (73) 97 12/05/20 00:00 98.6 81 20 108/53 (71) 95 12/04/20 21:00 Room Air 12/04/20 20:00 98.4 89 20 107/59 (75) 96 12/04/20 16:00 99.4 89 20 110/64 (79) 96 Height (Feet): 5 Height (Inches): 7.00 Weight (Pounds): 165 HEENT: mucous membranes moist Respiratory/Chest: lungs clear Cardiovascular: normal rate Abdomen: soft, non tender Extremities: no edema Skin: other - left leg erythema Neurologic/Psychiatric: other - sleeping Microbiology Date/Time Source Procedure Growth Status 12/04/20 01:55 Rectal Mucosa Received 12/03/20 21:15 Blood Blood Culture - Preliminary NO GROWTH AFTER 24 HOURS Resulted 12/03/20 21:00 Blood Blood Culture - Preliminary NO GROWTH AFTER 24 HOURS Resulted Current Medications Medications (Trade) Dose Ordered Sig/Jeny Route PRN Reason Start Time Stop Time Status Last Admin Dose Admin Acetaminophen (Tylenol) 500 mg Q4H PRN ORAL Temp >100.5/mild pain 1-3 12/04/20 00:00 01/03/21 00:00 12/05/20 04:26 Vancomycin HCl ([facility] pharmacy to dose) 1 ea DAILY PRN MISC Per rx protocol 12/04/20 13:00 01/03/21 12:59 Vancomycin HCl 750 mg/Sodium Chloride 275 ml @ 183.333 mls/hr Q12HR@0300,1500 IVPB 12/04/20 15:00 12/09/20 14:59 12/05/20 02:39 Donte Blum MD Dec 05, 2020 13:25
[2020-12-05 16:00] VITALS: BP 110/64
--- NOTE | 2020-12-05 19:34 | NUR ---
NURSE HAND-OFF: Important Events on Shift:[Wound care, Abx therapy, Pt verbally abusive but not combative ] Patient Status: [] Diet: [reg] Pending Orders: [] Pending Results/Labs:[] Pending MD notification:[] Latest Vital Signs: Temperature 98.0 , Pulse 89 , B/P 110 /64 , Respiratory Rate 20 , O2 SAT 96 , Simple Mask, O2 Flow Rate . Vital Sign Comment: [stable] Latest Batista Fall Score: 35 Fall Risk: Medium Risk Safety Measures: Call light Within Reach, Bed Alarm Zone 1, Side Rails Side Rails x2, Bed position Low and Locked. Fall Precautions: Patient Fall Education Report given to [NATHANIEL Al].
--- NOTE | 2020-12-05 20:46 | General Progress Note ---
Subjective ROS Limited/Unobtainable: Yes Allergies: Coded Allergies: No Known Allergies (Unverified , 12/03/20) Objective Last 24 Hour Vital Signs Date Time Temp Pulse Resp B/P (MAP) Pulse Ox O2 Delivery O2 Flow Rate FiO2 12/05/20 16:00 98.0 89 20 110/64 (79) 96 12/05/20 12:00 96.7 95 20 105/66 (79) 97 12/05/20 09:00 Room Air 12/05/20 08:00 96.7 71 20 114/69 (84) 97 12/05/20 04:00 98.5 77 20 107/56 (73) 97 12/05/20 00:00 98.6 81 20 108/53 (71) 95 12/04/20 21:00 Room Air Intake and Output 12/04/20 12/05/20 19:00 07:00 Intake Total 600 ml 606.663 ml Output Total 650 ml 550 ml Balance -50 ml 56.663 ml Intake Oral 600 ml 240 ml IV Total 366.663 ml Output Urine Total 650 ml 550 ml Height (Feet): 5 Height (Inches): 7.00 Weight (Pounds): 165 Assessment/Plan Problem List: (1) Injury of lower extremity ICD Codes: S89.90XA - Unspecified injury of unspecified lower leg, initial encounter SNOMED: 054154524 (2) Lower extremity cellulitis ICD Codes: L03.119 - Cellulitis of unspecified part of limb SNOMED: 922091807 Status: progressing Assessment/Plan: cellulitis left leg is improving abx per id Surekha Jacobson MD Dec 05, 2020 20:46
--- NOTE | 2020-12-05 23:04 | NUR ---
NURSE NOTES: Patient in bed, awake, alert x 4. kept clean and comfortable. bed in low and locked position. Provided safe environment. Iv site noted. Noted left leg redness, dressing noted. Patient refused other physical assessment. Patient was loud and using inappropriate words towards nurse and soil scientist. attempted to educate and explain to patient regarding behavior, patient kept shouting inappropriate words. call light is at bedside. Will continue plan of care.
[2020-12-06] MEDS: Vancomycin 750 MG in NS 275 ML IVPB SCH (02:59)
[2020-12-06 04:00] VITALS: BP 115/67
[2020-12-06 07:16] LABS: BASOPHILS % (AUTO) 0.5 % (0.0-2.0); EOSINOPHILS % (AUTO) 1.1 % (0.0-3.0); HEMATOCRIT 34.1 % (42.0-52.0); HEMOGLOBIN 11.1 G/DL (14.2-18.0); LYMPHOCYTES % (AUTO) 14.5 % (20.0-45.0); MEAN CORPUSCULAR VOLUME 91 FL (80-99); MONOCYTES % (AUTO) 10.8 % (1.0-10.0); NEUTROPHILS % (AUTO) 73.1 % (45.0-75.0); PLATELET COUNT 167 K/UL (150-450); RED BLOOD COUNT 3.73 M/UL (4.70-6.10); RED CELL DISTRIBUTION WIDTH 13.4 % (11.6-14.8); WHITE BLOOD COUNT 9.3 K/UL (4.8-10.8)
--- NOTE | 2020-12-06 07:21 | NUR ---
NURSE HAND-OFF: Important Events on Shift:WNL Patient Status: WNL Diet: Reg Pending Orders: Pending Results/Labs: Pending MD notification: Latest Vital Signs: Temperature 98.3 , Pulse 79 , B/P 115 /67 , Respiratory Rate 20 , O2 SAT 97 , Simple Mask, O2 Flow Rate . Vital Sign Comment: WNL Latest Batista Fall Score: 35 Fall Risk: Medium Risk Safety Measures: Call light Within Reach, Bed Alarm Zone 1, Side Rails Side Rails x2, Bed position Low and Locked. Fall Precautions: Patient Fall Education Report given to .
[2020-12-06 07:30] LABS: ALANINE AMINOTRANSFERASE 23 U/L (12-78); ALBUMIN 2.5 G/DL (3.4-5.0); ALBUMIN/GLOBULIN RATIO 0.6 (1.0-2.7); ALKALINE PHOSPHATASE 85 U/L (46-116); ANION GAP 8 mmol/L (5-15); ASPARTATE AMINO TRANSFERASE 20 U/L (15-37); BILIRUBIN,TOTAL 0.3 MG/DL (0.2-1.0); BLOOD UREA NITROGEN 14 mg/dL (7-18); CALCIUM 8.3 MG/DL (8.5-10.1); CARBON DIOXIDE 28 MMOL/L (21-32); CHLORIDE 102 MMOL/L (98-107); CREATININE 0.8 MG/DL (0.55-1.30); POTASSIUM 4.2 MMOL/L (3.5-5.1); SODIUM 137 MMOL/L (136-145)
--- NOTE | 2020-12-06 08:37 | General Progress Note ---
Subjective Date patient seen: Dec 06, 2020 Time patient seen: 07:00 - am Constitutional: Reports: no symptoms HEENT: Reports: no symptoms Cardiovascular: Reports: no symptoms Respiratory: Reports: no symptoms Gastrointestinal/Abdominal: Reports: no symptoms Genitourinary: Reports: no symptoms Neurologic/Psychiatric: Reports: no symptoms Endocrine: Reports: no symptoms Hematologic/Lymphatic: Reports: no symptoms Allergies: Coded Allergies: No Known Allergies (Unverified , 12/03/20) Subjective Patient doing well and denies pain at this time. Objective Last 24 Hour Vital Signs Date Time Temp Pulse Resp B/P (MAP) Pulse Ox O2 Delivery O2 Flow Rate FiO2 12/06/20 04:00 98.3 79 20 115/67 (83) 97 12/05/20 21:00 Room Air 12/05/20 16:00 98.0 89 20 110/64 (79) 96 12/05/20 12:00 96.7 95 20 105/66 (79) 97 12/05/20 09:00 Room Air Intake and Output 12/05/20 12/06/20 19:00 07:00 Intake Total 800 ml 1183.333 ml Output Total 800 ml 750 ml Balance 0 ml 433.333 ml Intake Oral 800 ml 1000 ml IV Total 183.333 ml Output Urine Total 800 ml 750 ml # Voids 3 Laboratory Tests 12/06/20 01:50: Vancomycin Level Trough 5.1 12/06/20 04:00: White Blood Count 9.3, Red Blood Count 3.73L, Hemoglobin 11.1L, Hematocrit 34.1L , Mean Corpuscular Volume 91, Mean Corpuscular Hemoglobin 29.9, Mean Corpuscular Hemoglobin Concent 32.7, Red Cell Distribution Width 13.4, Platelet Count 167, Mean Platelet Volume 5.6L, Neutrophils (%) (Auto) 73.1, Lymphocytes (%) (Auto) 14.5L, Monocytes (%) (Auto) 10.8H, Eosinophils (%) (Auto) 1.1, Basophils (%) (Auto) 0.5, Sodium Level 137, Potassium Level 4.2, Chloride Level 102, Carbon Dioxide Level 28, Anion Gap 8, Blood Urea Nitrogen 14, Creatinine 0.8, Estimat Glomerular Filtration Rate > 60, Glucose Level 75, Calcium Level 8.3L, Total Bilirubin 0.3, Aspartate Amino Transf (AST/SGOT) 20, Alanine Aminotransferase (ALT/SGPT) 23, Alkaline Phosphatase 85, Total Protein 6.6, Albumin 2.5L, Martine bulin 4.1, Albumin/Globulin Ratio 0.6L Height (Feet): 5 Height (Inches): 7.00 Weight (Pounds): 165 General Appearance: no apparent distress, alert EENT: PERRL/EOMI, normal ENT inspection Neck: non-tender, normal alignment Cardiovascular: normal rate, regular rhythm Respiratory/Chest: lungs clear, normal breath sounds Abdomen: non tender, soft Extremities: swelling Edema: trace edema Neurologic: alert, oriented x 3 Assessment/Plan Assessment/Plan: (1) Left LE pain (2) Cellulitis Patient to be continued on Tylenol D/w Dr. Flores and he concurred. Serafin Grubbs Dec 06, 2020 08:37
[2020-12-06 09:00] VITALS: BP 125/72
[2020-12-06] MEDS: Vancomycin 1gm/D5W 275ml IVPB SCH ×4 (09:00→16:06)
--- NOTE | 2020-12-06 11:28 | Infectious Diseases Prog Note ---
Assessment/Plan Assessment/Plan IMPRESSION: Sepsis, improving Cellulitis of left leg Chronic neuropathy, BPH. Homeless. RECOMMENDATION: Continue vancomycin Wound culture Subjective ROS Limited/Unobtainable: No Respiratory: Reports: no symptoms Cardiovascular: Reports: no symptoms Gastrointestinal/Abdominal: Reports: no symptoms Genitourinary: Reports: no symptoms Allergies: Coded Allergies: No Known Allergies (Unverified , 12/03/20) Objective Last 24 Hour Vital Signs Date Time Temp Pulse Resp B/P (MAP) Pulse Ox O2 Delivery O2 Flow Rate FiO2 12/06/20 04:00 98.3 79 20 115/67 (83) 97 12/05/20 21:00 Room Air 12/05/20 16:00 98.0 89 20 110/64 (79) 96 12/05/20 12:00 96.7 95 20 105/66 (79) 97 Height (Feet): 5 Height (Inches): 7.00 Weight (Pounds): 165 General Appearance: no acute distress HEENT: mucous membranes moist Respiratory/Chest: lungs clear Cardiovascular: normal rate Abdomen: soft, non tender Extremities: other - left leg edema Skin: other - left leg ulcer & erythema Neurologic/Psychiatric: alert, responsive Microbiology Date/Time Source Procedure Growth Status 12/04/20 01:55 Rectal Mucosa Received 12/03/20 21:15 Blood Blood Culture - Preliminary NO GROWTH AFTER 24 HOURS Resulted 12/03/20 21:00 Blood Blood Culture - Preliminary NO GROWTH AFTER 24 HOURS Resulted Laboratory Tests Test 12/06/20 01:50 12/06/20 04:00 Vancomycin Level Trough 5.1 ug/mL (5.0-12.0) White Blood Count 9.3 K/UL (4.8-10.8) Red Blood Count 3.73 M/UL (4.70-6.10) L Hemoglobin 11.1 G/DL (14.2-18.0) L Hematocrit 34.1 % (42.0-52.0) L Mean Corpuscular Volume 91 FL (80-99) Mean Corpuscular Hemoglobin 29.9 PG (27.0-31.0) Mean Corpuscular Hemoglobin Concent 32.7 G/DL (32.0-36.0) Red Cell Distribution Width 13.4 % (11.6-14.8) Platelet Count 167 K/UL (150-450) Mean Platelet Volume 5.6 FL (6.5-10.1) L Neutrophils (%) (Auto) 73.1 % (45.0-75.0) Lymphocytes (%) (Auto) 14.5 % (20.0-45.0) L Monocytes (%) (Auto) 10.8 % (1.0-10.0) H Eosinophils (%) (Auto) 1.1 % (0.0-3.0) Basophils (%) (Auto) 0.5 % (0.0-2.0) Sodium Level 137 MMOL/L (136-145) Potassium Level 4.2 MMOL/L (3.5-5.1) Chloride Level 102 MMOL/L (98-107) Carbon Dioxide Level 28 MMOL/L (21-32) Anion Gap 8 mmol/L (5-15) Blood Urea Nitrogen 14 mg/dL (7-18) Creatinine 0.8 MG/DL (0.55-1.30) Estimat Glomerular Filtration Rate > 60 mL/min (>60) Glucose Level 75 MG/DL (74-106) Calcium Level 8.3 MG/DL (8.5-10.1) L Total Bilirubin 0.3 MG/DL (0.2-1.0) Aspartate Amino Transf (AST/SGOT) 20 U/L (15-37) Alanine Aminotransferase (ALT/SGPT) 23 U/L (12-78) Alkaline Phosphatase 85 U/L (46-116) Total Protein 6.6 G/DL (6.4-8.2) Albumin 2.5 G/DL (3.4-5.0) L Globulin 4.1 g/dL Albumin/Globulin Ratio 0.6 (1.0-2.7) L Current Medications Medications (Trade) Dose Ordered Sig/Jeny Route PRN Reason Start Time Stop Time Status Last Admin Dose Admin Acetaminophen (Tylenol) 500 mg Q4H PRN ORAL Temp >100.5/mild pain 1-3 12/04/20 00:00 01/03/21 00:00 12/05/20 04:26 Vancomycin HCl ([facility] pharmacy to dose) 1 ea DAILY PRN MISC Per rx protocol 12/04/20 13:00 01/03/21 12:59 Vancomycin HCl 1 gm/Dextrose 275 ml @ 183.708 mls/hr Q8HR@0100,0900,1700 IVPB 12/06/20 09:00 12/11/20 08:59 12/06/20 09:00 Donte Blum MD Dec 06, 2020 11:28
[2020-12-06 12:00] VITALS: BP 123/80
--- NOTE | 2020-12-06 12:20 | Cardiac Electrophysiology PN ---
Assessment/Plan Assessment/Plan 1. Tachycardia due to sinus tachycardia due to sepsis, white count 59170. Already on IV vancomycin. EF 45%. No vegetaion reported 2. Elevated white count likely due to cellulitis. 3. History of shoulder surgery. 4. Agitation Subjective Subjective No CP or SOB but is still argumentative with staff. On iv Abx Objective Last 24 Hour Vital Signs Date Time Temp Pulse Resp B/P (MAP) Pulse Ox O2 Delivery O2 Flow Rate FiO2 12/06/20 12:00 98.1 72 18 123/80 (94) 98 12/06/20 09:00 Room Air 12/06/20 09:00 97.3 87 20 125/72 (89) 97 12/06/20 04:00 98.3 79 20 115/67 (83) 97 12/05/20 21:00 Room Air 12/05/20 16:00 98.0 89 20 110/64 (79) 96 Intake and Output 12/05/20 12/06/20 19:00 07:00 Intake Total 800 ml 1183.333 ml Output Total 800 ml 750 ml Balance 0 ml 433.333 ml Intake Oral 800 ml 1000 ml IV Total 183.333 ml Output Urine Total 800 ml 750 ml # Voids 3 Laboratory Tests Test 12/06/20 01:50 12/06/20 04:00 Vancomycin Level Trough 5.1 ug/mL (5.0-12.0) White Blood Count 9.3 K/UL (4.8-10.8) Red Blood Count 3.73 M/UL (4.70-6.10) L Hemoglobin 11.1 G/DL (14.2-18.0) L Hematocrit 34.1 % (42.0-52.0) L Mean Corpuscular Volume 91 FL (80-99) Mean Corpuscular Hemoglobin 29.9 PG (27.0-31.0) Mean Corpuscular Hemoglobin Concent 32.7 G/DL (32.0-36.0) Red Cell Distribution Width 13.4 % (11.6-14.8) Platelet Count 167 K/UL (150-450) Mean Platelet Volume 5.6 FL (6.5-10.1) L Neutrophils (%) (Auto) 73.1 % (45.0-75.0) Lymphocytes (%) (Auto) 14.5 % (20.0-45.0) L Monocytes (%) (Auto) 10.8 % (1.0-10.0) H Eosinophils (%) (Auto) 1.1 % (0.0-3.0) Basophils (%) (Auto) 0.5 % (0.0-2.0) Sodium Level 137 MMOL/L (136-145) Potassium Level 4.2 MMOL/L (3.5-5.1) Chloride Level 102 MMOL/L (98-107) Carbon Dioxide Level 28 MMOL/L (21-32) Anion Gap 8 mmol/L (5-15) Blood Urea Nitrogen 14 mg/dL (7-18) Creatinine 0.8 MG/DL (0.55-1.30) Estimat Glomerular Filtration Rate > 60 mL/min (>60) Glucose Level 75 MG/DL (74-106) Calcium Level 8.3 MG/DL (8.5-10.1) L Total Bilirubin 0.3 MG/DL (0.2-1.0) Aspartate Amino Transf (AST/SGOT) 20 U/L (15-37) Alanine Aminotransferase (ALT/SGPT) 23 U/L (12-78) Alkaline Phosphatase 85 U/L (46-116) Total Protein 6.6 G/DL (6.4-8.2) Albumin 2.5 G/DL (3.4-5.0) L Globulin 4.1 g/dL Albumin/Globulin Ratio 0.6 (1.0-2.7) L Microbiology Date/Time Source Procedure Growth Status 12/04/20 01:55 Rectal Mucosa Received 12/03/20 21:15 Blood Blood Culture - Preliminary NO GROWTH AFTER 24 HOURS Resulted 12/03/20 21:00 Blood Blood Culture - Preliminary NO GROWTH AFTER 24 HOURS Resulted Objective HEAD AND NECK: Shows no JVD. LUNGS: Clear. CARDIOVASCULAR: Regular S1 and S2 with no gallop. ABDOMEN: Soft. EXTREMITIES: Cellulitis of the left leg. Damon Abraham MD Dec 06, 2020 12:20
--- NOTE | 2020-12-06 13:18 | Surgery Progress Note ---
Surgery Progress Note Subjective Symptoms: improved, tolerating diet, voiding well, passing flatus, BM Additional Comments edema improved cellulitis improved using ice pack and states much better now Objective Last 24 Hour Vital Signs Date Time Temp Pulse Resp B/P (MAP) Pulse Ox O2 Delivery O2 Flow Rate FiO2 12/06/20 12:00 98.1 72 18 123/80 (94) 98 12/06/20 09:00 Room Air 12/06/20 09:00 97.3 87 20 125/72 (89) 97 12/06/20 04:00 98.3 79 20 115/67 (83) 97 12/05/20 21:00 Room Air 12/05/20 16:00 98.0 89 20 110/64 (79) 96 I&O Intake and Output 12/05/20 12/06/20 19:00 07:00 Intake Total 800 ml 1183.333 ml Output Total 800 ml 750 ml Balance 0 ml 433.333 ml Intake Oral 800 ml 1000 ml IV Total 183.333 ml Output Urine Total 800 ml 750 ml # Voids 3 Dressing: dry Wound: clean Cardiovascular: RSR Respiratory: clear Abdomen: soft, flat, non-tender, present bowel sounds Extremities: no edema, no tenderness, no cyanosis Laboratory Tests Test 12/06/20 01:50 12/06/20 04:00 Vancomycin Level Trough 5.1 ug/mL (5.0-12.0) White Blood Count 9.3 K/UL (4.8-10.8) Red Blood Count 3.73 M/UL (4.70-6.10) L Hemoglobin 11.1 G/DL (14.2-18.0) L Hematocrit 34.1 % (42.0-52.0) L Mean Corpuscular Volume 91 FL (80-99) Mean Corpuscular Hemoglobin 29.9 PG (27.0-31.0) Mean Corpuscular Hemoglobin Concent 32.7 G/DL (32.0-36.0) Red Cell Distribution Width 13.4 % (11.6-14.8) Platelet Count 167 K/UL (150-450) Mean Platelet Volume 5.6 FL (6.5-10.1) L Neutrophils (%) (Auto) 73.1 % (45.0-75.0) Lymphocytes (%) (Auto) 14.5 % (20.0-45.0) L Monocytes (%) (Auto) 10.8 % (1.0-10.0) H Eosinophils (%) (Auto) 1.1 % (0.0-3.0) Basophils (%) (Auto) 0.5 % (0.0-2.0) Sodium Level 137 MMOL/L (136-145) Potassium Level 4.2 MMOL/L (3.5-5.1) Chloride Level 102 MMOL/L (98-107) Carbon Dioxide Level 28 MMOL/L (21-32) Anion Gap 8 mmol/L (5-15) Blood Urea Nitrogen 14 mg/dL (7-18) Creatinine 0.8 MG/DL (0.55-1.30) Estimat Glomerular Filtration Rate > 60 mL/min (>60) Glucose Level 75 MG/DL (74-106) Calcium Level 8.3 MG/DL (8.5-10.1) L Total Bilirubin 0.3 MG/DL (0.2-1.0) Aspartate Amino Transf (AST/SGOT) 20 U/L (15-37) Alanine Aminotransferase (ALT/SGPT) 23 U/L (12-78) Alkaline Phosphatase 85 U/L (46-116) Total Protein 6.6 G/DL (6.4-8.2) Albumin 2.5 G/DL (3.4-5.0) L Globulin 4.1 g/dL Albumin/Globulin Ratio 0.6 (1.0-2.7) L Plan Problems: (1) Injury of lower extremity (2) Lower extremity cellulitis Assessment & Plan: Very pleasant 70-year-old male with worsening left lower extremity cellulitis edema and identifiable ulcer on the medial aspect. Patient denies any trauma and unsure etiology of ulcer but on the medial aspect of the distal leg there is a 3 cm x 4 cm eschar with no abscess no drainage. Wound likely initial etiology of the infection potentially related to trauma. Patient has erythema tenderness warmth induration of the distal leg to the ankle. The foot seems fairly spared. Midpoint apex seems to be the wound identified on the medial aspect. Does not track higher than the mid leg. Tender difficult to walk muscle compartments okay. Wound washed with normal saline. Apply Thera honey Optifoam dressing. Keep lower extremity elevated while in bed. Okay to ambulate. IV antibiotics per PCP or infectious disease. Will need some time for resolving cellulitis. No abscess noted at this time. No surgical intervention planned. Will monitor for potential abscess formation phlegmon. Thank you for let me participate in patient's care will follow with recommendations. doing well cont current tx Vaughn Vasquez Dec 06, 2020 13:18
--- NOTE | 2020-12-06 16:13 | NUR ---
NURSE NOTES: Pt is verbally abusive to nurse. Charge nurse notified. Pt refused evening iv antibiotic. Order for culture cannot be completed at this time due to pts behavior.
--- NOTE | 2020-12-06 18:59 | General Progress Note ---
Subjective ROS Limited/Unobtainable: Yes Allergies: Coded Allergies: No Known Allergies (Unverified , 12/03/20) Objective Last 24 Hour Vital Signs Date Time Temp Pulse Resp B/P (MAP) Pulse Ox O2 Delivery O2 Flow Rate FiO2 12/06/20 12:00 98.1 72 18 123/80 (94) 98 12/06/20 09:00 Room Air 12/06/20 09:00 97.3 87 20 125/72 (89) 97 12/06/20 04:00 98.3 79 20 115/67 (83) 97 12/05/20 21:00 Room Air Intake and Output 12/05/20 12/06/20 19:00 07:00 Intake Total 800 ml 1183.333 ml Output Total 800 ml 750 ml Balance 0 ml 433.333 ml Intake Oral 800 ml 1000 ml IV Total 183.333 ml Output Urine Total 800 ml 750 ml # Voids 3 Laboratory Tests 12/06/20 01:50: Vancomycin Level Trough 5.1 12/06/20 04:00: White Blood Count 9.3, Red Blood Count 3.73L, Hemoglobin 11.1L, Hematocrit 34.1L , Mean Corpuscular Volume 91, Mean Corpuscular Hemoglobin 29.9, Mean Corpuscular Hemoglobin Concent 32.7, Red Cell Distribution Width 13.4, Platelet Count 167, Mean Platelet Volume 5.6L, Neutrophils (%) (Auto) 73.1, Lymphocytes (%) (Auto) 14.5L, Monocytes (%) (Auto) 10.8H, Eosinophils (%) (Auto) 1.1, Basophils (%) (Auto) 0.5, Sodium Level 137, Potassium Level 4.2, Chloride Level 102, Carbon Dioxide Level 28, Anion Gap 8, Blood Urea Nitrogen 14, Creatinine 0.8, Estimat Glomerular Filtration Rate > 60, Glucose Level 75, Calcium Level 8.3L, Total Bilirubin 0.3, Aspartate Amino Transf (AST/SGOT) 20, Alanine Aminotransferase (ALT/SGPT) 23, Alkaline Phosphatase 85, Total Protein 6.6, Albumin 2.5L, Globulin 4.1, Albumin/Globulin Ratio 0.6L Height (Feet): 5 Height (Inches): 7.00 Weight (Pounds): 165 Assessment/Plan Problem List: (1) Injury of lower extremity ICD Codes: S89.90XA - Unspecified injury of unspecified lower leg, initial encounter SNOMED: 310369009 (2) Lower extremity cellulitis ICD Codes: L03.119 - Cellulitis of unspecified part of limb SNOMED: 311145368 Status: progressing Assessment/Plan: cellulitis left leg edema is mild neg dvt afebrile Surekha Aguilar MD Dec 06, 2020 18:59
--- NOTE | 2020-12-06 19:30 | NUR ---
NURSE NOTES: Received patient in bed. A&OX4. IV site patent and intact. Bed in lowest position. Call light within reach. Will continue to monitor.
[2020-12-06 20:00] VITALS: BP 119/69
[2020-12-07] VITALS: BP 113/72
[2020-12-07] MEDS: Vancomycin 1gm/D5W 275ml IVPB SCH ×6 (00:31→18:33)
--- NOTE | 2020-12-07 00:38 | NUR ---
NURSE NOTES: Dressing changed as ordered, wound culture done.
[2020-12-07 04:00] VITALS: BP 123/73
--- NOTE | 2020-12-07 07:52 | NUR ---
NURSE HAND-OFF: Important Events on Shift: Patient Status: Diet: Pending Orders: Pending Results/Labs: Pending MD notification: Latest Vital Signs: Temperature 98.1 , Pulse 67 , B/P 123 /73 , Respiratory Rate 16 , O2 SAT 100 , Simple Mask, O2 Flow Rate . Vital Sign Comment: Latest Batista Fall Score: 35 Fall Risk: Medium Risk Safety Measures: Call light Within Reach, Bed Alarm Zone 1, Side Rails Side Rails x2, Bed position Low and Locked. Fall Precautions: Patient Fall Education Report given to Chandler ARMSTRONG.
--- NOTE | 2020-12-07 07:54 | NUR ---
NURSE NOTES: Received report from Jg Christopher RN. Patient sitting up in bed, awake and alert, watching television, side rails up x 3, bed in lowest position, wheels locked, side rails up x 3, c/o pain on left lower extremity, asking for ice, provided bag of ice for leg.
[2020-12-07 08:00] VITALS: BP 107/71
[2020-12-07] MEDS: Acetaminophen 500mg (ES) tab ORAL PRN (08:47)
--- NOTE | 2020-12-07 09:11 | General Progress Note ---
Subjective Date patient seen: Dec 07, 2020 Time patient seen: 07:00 - am Allergies: Coded Allergies: No Known Allergies (Unverified , 12/03/20) Subjective Constitutional: Reports: no symptoms HEENT: Reports: no symptoms Cardiovascular: Reports: no symptoms Respiratory: Reports: no symptoms Gastrointestinal/Abdominal: Reports: no symptoms Genitourinary: Reports: no symptoms Neurologic/Psychiatric: Reports: no symptoms Endocrine: Reports: no symptoms Hematologic/Lymphatic: Reports: no symptoms Subjective Patient resting in bed no signs of pain or distress. No new complaints at this time. Objective Last 24 Hour Vital Signs Date Time Temp Pulse Resp B/P (MAP) Pulse Ox O2 Delivery O2 Flow Rate FiO2 12/07/20 08:00 97.2 73 19 107/71 (83) 97 12/07/20 04:00 98.1 67 16 123/73 (90) 100 12/07/20 00:39 Room Air 12/07/20 00:00 98.1 75 16 113/72 (86) 99 12/06/20 21:00 Room Air 12/06/20 20:00 98.4 71 16 119/69 (86) 98 12/06/20 12:00 98.1 72 18 123/80 (94) 98 Intake and Output 12/06/20 12/07/20 19:00 07:00 Intake Total 360 ml 635.000 ml Output Total 900 ml Balance -540 ml 635.000 ml Intake Oral 360 ml IV Total 275.000 ml Other 360 ml Output Urine Total 900 ml # Voids 4 Height (Feet): 5 Height (Inches): 7.00 Weight (Pounds): 165 Objective General Appearance: no apparent distress, alert EENT: PERRL/EOMI, normal ENT inspection Neck: non-tender, normal alignment Cardiovascular: normal rate, regular rhythm Respiratory/Chest: lungs clear, normal breath sounds Abdomen: non tender, soft Extremities: swelling Edema: trace edema Neurologic: alert, oriented x 3 Assessment/Plan Assessment/Plan: (1) Left LE pain (2) Cellulitis Patient to be continued on Tylenol D/w Dr. Flores and he concurred. Serafin Grubbs Dec 07, 2020 09:11
--- NOTE | 2020-12-07 10:49 | Cardiac Electrophysiology PN ---
Assessment/Plan Assessment/Plan 1. Tachycardia due to sinus tachycardia due to sepsis, white count 50452 on IV vancomycin. EF 45%. No vegetaion reported 2. Elevated white count likely due to Leg cellulitis. 3. History of shoulder surgery. 4. Agitation Subjective Subjective No CP or SOB. Calmer today. On iv Abx Objective Last 24 Hour Vital Signs Date Time Temp Pulse Resp B/P (MAP) Pulse Ox O2 Delivery O2 Flow Rate FiO2 12/07/20 09:17 97.2 12/07/20 09:00 Room Air 12/07/20 08:00 97.2 73 19 107/71 (83) 97 12/07/20 04:00 98.1 67 16 123/73 (90) 100 12/07/20 00:39 Room Air 12/07/20 00:00 98.1 75 16 113/72 (86) 99 12/06/20 21:00 Room Air 12/06/20 20:00 98.4 71 16 119/69 (86) 98 12/06/20 12:00 98.1 72 18 123/80 (94) 98 Intake and Output 12/06/20 12/07/20 19:00 07:00 Intake Total 360 ml 635.000 ml Output Total 900 ml Balance -540 ml 635.000 ml Intake Oral 360 ml IV Total 275.000 ml Other 360 ml Output Urine Total 900 ml # Voids 4 Objective HEAD AND NECK: Shows no JVD. LUNGS: Clear. CARDIOVASCULAR: Regular S1 and S2 with no gallop. ABDOMEN: Soft. EXTREMITIES: Cellulitis of the left leg. Damon Abraham MD Dec 07, 2020 10:49
--- NOTE | 2020-12-07 11:23 | Surgery Progress Note ---
Surgery Progress Note Subjective Symptoms: improved, tolerating diet, voiding well, passing flatus, BM, pain decreased Additional Comments wants to take a shower cellulitis improved Objective Last 24 Hour Vital Signs Date Time Temp Pulse Resp B/P (MAP) Pulse Ox O2 Delivery O2 Flow Rate FiO2 12/07/20 09:17 97.2 12/07/20 09:00 Room Air 12/07/20 08:00 97.2 73 19 107/71 (83) 97 12/07/20 04:00 98.1 67 16 123/73 (90) 100 12/07/20 00:39 Room Air 12/07/20 00:00 98.1 75 16 113/72 (86) 99 12/06/20 21:00 Room Air 12/06/20 20:00 98.4 71 16 119/69 (86) 98 12/06/20 12:00 98.1 72 18 123/80 (94) 98 I&O Intake and Output 12/06/20 12/07/20 19:00 07:00 Intake Total 360 ml 635.000 ml Output Total 900 ml Balance -540 ml 635.000 ml Intake Oral 360 ml IV Total 275.000 ml Other 360 ml Output Urine Total 900 ml # Voids 4 Dressing: dry Wound: clean Cardiovascular: RSR Respiratory: clear Abdomen: non-tender, present bowel sounds, non-distended Extremities: edema, no tenderness, no cyanosis Plan Problems: (1) Injury of lower extremity (2) Lower extremity cellulitis Assessment & Plan: Very pleasant 70-year-old male with worsening left lower extremity cellulitis edema and identifiable ulcer on the medial aspect. Patient denies any trauma and unsure etiology of ulcer but on the medial aspect of the distal leg there is a 3 cm x 4 cm eschar with no abscess no drainage. Wound likely initial etiology of the infection potentially related to trauma. Patient has erythema tenderness warmth induration of the distal leg to the ankle. The foot seems fairly spared. Midpoint apex seems to be the wound identified on the medial aspect. Does not track higher than the mid leg. Tender difficult to walk muscle compartments okay. Wound washed with normal saline. Apply Thera honey Optifoam dressing. Keep lower extremity elevated while in bed. Okay to ambulate. IV antibiotics per PCP or infectious disease. Will need some time for resolving cellulitis. No abscess noted at this time. No surgical intervention planned. Will monitor for potential abscess formation phlegmon. Thank you for let me participate in patient's care will follow with recommendations. doing well cont current tx improving cont tx d/c planning ax as per Vaughn Villanueva Dec 07, 2020 11:23
--- NOTE | 2020-12-07 11:34 | Infectious Diseases Prog Note ---
Assessment/Plan Assessment/Plan IMPRESSION: Sepsis, improving Cellulitis of left leg Chronic neuropathy, BPH. Homeless. RECOMMENDATION: Continue vancomycin Will f/u wound culture Subjective ROS Limited/Unobtainable: No Constitutional: Reports: no symptoms Respiratory: Reports: no symptoms Cardiovascular: Reports: no symptoms Gastrointestinal/Abdominal: Reports: no symptoms Musculoskeletal: Reports: no symptoms Allergies: Coded Allergies: No Known Allergies (Unverified , 12/03/20) Objective Last 24 Hour Vital Signs Date Time Temp Pulse Resp B/P (MAP) Pulse Ox O2 Delivery O2 Flow Rate FiO2 12/07/20 09:17 97.2 12/07/20 09:00 Room Air 12/07/20 08:00 97.2 73 19 107/71 (83) 97 12/07/20 04:00 98.1 67 16 123/73 (90) 100 12/07/20 00:39 Room Air 12/07/20 00:00 98.1 75 16 113/72 (86) 99 12/06/20 21:00 Room Air 12/06/20 20:00 98.4 71 16 119/69 (86) 98 12/06/20 12:00 98.1 72 18 123/80 (94) 98 Height (Feet): 5 Height (Inches): 7.00 Weight (Pounds): 165 General Appearance: no acute distress HEENT: mucous membranes moist Respiratory/Chest: lungs clear Cardiovascular: normal rate Abdomen: soft, non tender Extremities: other - left leg edema Skin: other - erythema & ulcer of left leg Neurologic/Psychiatric: alert, oriented x 3, responsive Current Medications Medications (Trade) Dose Ordered Sig/Jeny Route PRN Reason Start Time Stop Time Status Last Admin Dose Admin Acetaminophen (Tylenol) 500 mg Q4H PRN ORAL Temp >100.5/mild pain 1-3 12/04/20 00:00 01/03/21 00:00 12/07/20 08:47 Vancomycin HCl ([facility] pharmacy to dose) 1 ea DAILY PRN MISC Per rx protocol 12/04/20 13:00 01/03/21 12:59 Vancomycin HCl 1 gm/Dextrose 275 ml @ 183.708 mls/hr Q8HR@0100,0900,1700 IVPB 12/06/20 09:00 12/11/20 08:59 12/07/20 08:47 Donte Blum MD Dec 07, 2020 11:34
[2020-12-07 12:00] VITALS: BP 92/54
[2020-12-07 16:00] VITALS: BP 110/69
--- NOTE | 2020-12-07 19:21 | General Progress Note ---
Subjective ROS Limited/Unobtainable: Yes Allergies: Coded Allergies: No Known Allergies (Unverified , 12/03/20) Objective Last 24 Hour Vital Signs Date Time Temp Pulse Resp B/P (MAP) Pulse Ox O2 Delivery O2 Flow Rate FiO2 12/07/20 16:00 97.9 70 18 110/69 (83) 98 12/07/20 12:00 97.2 64 19 92/54 (67) 98 12/07/20 09:17 97.2 12/07/20 09:00 Room Air 12/07/20 08:00 97.2 73 19 107/71 (83) 97 12/07/20 04:00 98.1 67 16 123/73 (90) 100 12/07/20 00:39 Room Air 12/07/20 00:00 98.1 75 16 113/72 (86) 99 12/06/20 21:00 Room Air 12/06/20 20:00 98.4 71 16 119/69 (86) 98 Intake and Output 0 12/06/20 12/07/20 19:00 07:00 Intake Total 360 ml 635.000 ml Output Total 900 ml Balance -540 ml 635.000 ml Intake Oral 360 ml IV Total 275.000 ml Other 360 ml Output Urine Total 900 ml # Voids 4 Laboratory Tests 12/07/20 16:15: Vancomycin Level Trough 11.4 Height (Feet): 5 Height (Inches): 7.00 Weight (Pounds): 165 Assessment/Plan Problem List: (1) Injury of lower extremity ICD Codes: S89.90XA - Unspecified injury of unspecified lower leg, initial encounter SNOMED: 545203492 (2) Lower extremity cellulitis ICD Codes: L03.119 - Cellulitis of unspecified part of limb SNOMED: 223947731 Status: progressing Assessment/Plan: cellulitis left leg is improving abx per id mild edema Surekha Aguilar MD Dec 07, 2020 19:21
[2020-12-07 20:00] VITALS: BP 113/70
--- NOTE | 2020-12-07 20:13 | NUR ---
NURSE HAND-OFF: Important Events on Shift: Patient is pleasant. Vanco trough, continue 1 mg. [facility]anco IV. Patient's IV infiltrated on right forearm. Discontinued. Endorsed replacement of IV access to Jg Christopher RN. Patient Status: In no apparent distress. Diet: Regular Pending Orders: N/A Pending Results/Labs:N/A Pending MD notification:N/A Latest Vital Signs: Temperature 97.9 , Pulse 70 , B/P 110 /69 , Respiratory Rate 18 , O2 SAT 98 , Simple Mask, O2 Flow Rate . Vital Sign Comment: N/A Latest Batista Fall Score: 35 Fall Risk: Medium Risk Safety Measures: Call light Within Reach, Bed Alarm Zone 1, Side Rails Side Rails x2, Bed position Low and Locked. Fall Precautions: Patient Fall Education Report given to Jg Christopher RN.
--- NOTE | 2020-12-07 20:14 | NUR ---
NURSE NOTES: Received patient in bed. A&OX4. Insert new IV on left forearm, patent and intact. Dressing changed on left lower leg, new ice pack placed. Bed in lowest position. Call light within reach. Will continue to monitor.
[2020-12-08] VITALS: BP 104/59
[2020-12-08] MEDS: Vancomycin 1gm/D5W 275ml IVPB SCH ×6 (00:34→16:23)
[2020-12-08 04:00] VITALS: BP 125/77
--- NOTE | 2020-12-08 07:30 | NUR ---
NURSE NOTES: Patient seen in bed in low fowlers position, playing on his own phone, Patient is on room air with oxygen saturation within normal limits. Patient is AAox4 in stable condition with no acute signs of distress and no complaints of pain 0/10. Patient has a L FA 24G Iv that is clean, patent intact and is saline locked. Patients bed is in lowest position, locked, side rails x3, call light within reach. patient instructed to press call light for further needs.
[2020-12-08 08:00] VITALS: BP 108/65
--- NOTE | 2020-12-08 08:02 | NUR ---
NURSE HAND-OFF: Important Events on Shift: Patient Status: Diet: Regular Pending Orders: Pending Results/Labs: Pending MD notification: Latest Vital Signs: Temperature 98.2 , Pulse 70 , B/P 125 /77 , Respiratory Rate 16 , O2 SAT 95 , Simple Mask, O2 Flow Rate . Vital Sign Comment: Latest Batista Fall Score: 35 Fall Risk: Medium Risk Safety Measures: Call light Within Reach, Bed Alarm Zone 1, Side Rails Side Rails x2, Bed position Low and Locked. Fall Precautions: Patient Fall Education Report given to Nomi ARMSTRONG.
--- NOTE | 2020-12-08 10:32 | Infectious Diseases Prog Note ---
Assessment/Plan Assessment/Plan IMPRESSION: Sepsis, improving Cellulitis of left leg Chronic neuropathy, BPH. Homeless. RECOMMENDATION: Continue vancomycin Will f/u wound culture Subjective ROS Limited/Unobtainable: No Constitutional: Reports: no symptoms Respiratory: Reports: no symptoms Gastrointestinal/Abdominal: Reports: no symptoms Genitourinary: Reports: no symptoms Musculoskeletal: Reports: pain, other - in left leg Allergies: Coded Allergies: No Known Allergies (Unverified , 12/03/20) Objective Last 24 Hour Vital Signs Date Time Temp Pulse Resp B/P (MAP) Pulse Ox O2 Delivery O2 Flow Rate FiO2 12/08/20 04:00 98.2 70 16 125/77 (93) 95 12/08/20 00:00 97.8 65 16 104/59 (74) 95 12/07/20 20:51 Room Air 12/07/20 20:00 97.9 66 16 113/70 (84) 94 12/07/20 16:00 97.9 70 18 110/69 (83) 98 12/07/20 12:00 97.2 64 19 92/54 (67) 98 Height (Feet): 5 Height (Inches): 7.00 Weight (Pounds): 165 HEENT: mucous membranes moist Respiratory/Chest: lungs clear Cardiovascular: normal rate Abdomen: soft, non tender Extremities: no edema Skin: other - decreasing erythema of left leg Neurologic/Psychiatric: alert, oriented x 3, responsive Laboratory Tests Test 12/07/20 16:15 Vancomycin Level Trough 11.4 ug/mL (5.0-12.0) Current Medications Medications (Trade) Dose Ordered Sig/Jeny Route PRN Reason Start Time Stop Time Status Last Admin Dose Admin Acetaminophen (Tylenol) 500 mg Q4H PRN ORAL Temp >100.5/mild pain 1-3 12/04/20 00:00 01/03/21 00:00 12/07/20 08:47 Vancomycin HCl ([facility] pharmacy to dose) 1 ea DAILY PRN MISC Per rx protocol 12/04/20 13:00 01/03/21 12:59 Vancomycin HCl 1 gm/Dextrose 275 ml @ 183.708 mls/hr Q8HR@0100,0900,1700 IVPB 12/06/20 09:00 12/11/20 08:59 12/08/20 08:56 Donte Blum MD Dec 08, 2020 10:32
[2020-12-08 12:00] VITALS: BP 114/75
--- NOTE | 2020-12-08 14:09 | Cardiology Report ---
APPROVED REPORT EKG Measurement Heart [id number] <Conclusion> Normal sinus rhythm Normal ECG
--- NOTE | 2020-12-08 15:32 | Cardiac Electrophysiology PN ---
Assessment/Plan Assessment/Plan 1. Sinus tachycardia due to sepsis, white count 76384 on IV vancomycin. EF 45%. No vegetaion reported No fib 2. Elevated white count likely due to Leg cellulitis. 3. History of shoulder surgery. 4. Agitation Subjective Subjective No CP or SOB. On iv Abx Objective Last 24 Hour Vital Signs Date Time Temp Pulse Resp B/P (MAP) Pulse Ox O2 Delivery O2 Flow Rate FiO2 12/08/20 12:00 97.9 76 18 114/75 (88) 99 12/08/20 09:00 Room Air 12/08/20 08:00 97.8 66 18 108/65 (79) 99 12/08/20 04:00 98.2 70 16 125/77 (93) 95 12/08/20 00:00 97.8 65 16 104/59 (74) 95 12/07/20 20:51 Room Air 12/07/20 20:00 97.9 66 16 113/70 (84) 94 12/07/20 16:00 97.9 70 18 110/69 (83) 98 Intake and Output 12/07/20 12/08/20 19:00 07:00 Intake Total 900 ml 910.000 ml Balance 900 ml 910.000 ml Intake Oral 900 ml IV Total 550.000 ml Other 360 ml # Voids 3 Laboratory Tests Test 12/07/20 16:15 Vancomycin Level Trough 11.4 ug/mL (5.0-12.0) Microbiology Date/Time Source Procedure Growth Status 12/07/20 00:40 Leg Left Gram Stain - Final Resulted 12/07/20 00:40 Leg Left Wound Culture - Preliminary Resulted Objective HEAD AND NECK: Shows no JVD. LUNGS: Clear. CARDIOVASCULAR: Regular S1 and S2 with no gallop. ABDOMEN: Soft. EXTREMITIES: Cellulitis of the left leg. Damon Abraham MD Dec 08, 2020 15:32
[2020-12-08 16:00] VITALS: BP 102/64
--- NOTE | 2020-12-08 17:20 | Surgery Progress Note ---
Surgery Progress Note Subjective Symptoms: improved, tolerating diet, passing flatus Objective Last 24 Hour Vital Signs Date Time Temp Pulse Resp B/P (MAP) Pulse Ox O2 Delivery O2 Flow Rate FiO2 12/08/20 16:00 97.9 65 18 102/64 (77) 96 12/08/20 12:00 97.9 76 18 114/75 (88) 99 12/08/20 09:00 Room Air 12/08/20 08:00 97.8 66 18 108/65 (79) 99 12/08/20 04:00 98.2 70 16 125/77 (93) 95 12/08/20 00:00 97.8 65 16 104/59 (74) 95 12/07/20 20:51 Room Air 12/07/20 20:00 97.9 66 16 113/70 (84) 94 I&O Intake and Output 12/07/20 12/08/20 19:00 07:00 Intake Total 900 ml 910.000 ml Balance 900 ml 910.000 ml Intake Oral 900 ml IV Total 550.000 ml Other 360 ml # Voids 3 Dressing: dry Wound: clean Cardiovascular: RSR Respiratory: clear Abdomen: soft, flat, non-tender, present bowel sounds Extremities: edema, no tenderness, no cyanosis Plan Problems: (1) Injury of lower extremity (2) Lower extremity cellulitis Assessment & Plan: Very pleasant 70-year-old male with worsening left lower extremity cellulitis edema and identifiable ulcer on the medial aspect. Patient denies any trauma and unsure etiology of ulcer but on the medial aspect of the distal leg there is a 3 cm x 4 cm eschar with no abscess no drainage. Wound likely initial etiology of the infection potentially related to trauma. Patient has erythema tenderness warmth induration of the distal leg to the ankle. The foot seems fairly spared. Midpoint apex seems to be the wound identified on the medial aspect. Does not track higher than the mid leg. Tender difficult to walk muscle compartments okay. Wound washed with normal saline. Apply Thera honey Optifoam dressing. Keep lower extremity elevated while in bed. Okay to ambulate. IV antibiotics per PCP or infectious disease. Will need some time fo r resolving cellulitis. No abscess noted at this time. No surgical intervention planned. Will monitor for potential abscess formation phlegmon. Thank you for let me participate in patient's care will follow with recommendations. doing well cont current tx improving cont tx d/c planning ax as per Vaughn Villanueva Dec 08, 2020 17:20
--- NOTE | 2020-12-08 19:41 | NUR ---
NURSE HAND-OFF: Important Events on Shift:[ABX] Patient Status: [Full code] Diet: [Regular] Pending Orders: [N/A] Pending Results/Labs:[N/A] Pending MD notification:[N/A] Latest Vital Signs: Temperature 97.9 , Pulse 65 , B/P 102 /64 , Respiratory Rate 18 , O2 SAT 96 , Simple Mask, O2 Flow Rate . Vital Sign Comment: [] Latest Batista Fall Score: 35 Fall Risk: Medium Risk Safety Measures: Call light Within Reach, Bed Alarm Zone 1, Side Rails Side Rails x2, Bed position Low and Locked. Fall Precautions: Patient Fall Education Report given to [NATHANIEL Sidhu].
[2020-12-08 20:00] VITALS: BP 100/62
--- NOTE | 2020-12-08 20:17 | General Progress Note ---
Subjective ROS Limited/Unobtainable: Yes Allergies: Coded Allergies: No Known Allergies (Unverified , 12/03/20) Objective Last 24 Hour Vital Signs Date Time Temp Pulse Resp B/P (MAP) Pulse Ox O2 Delivery O2 Flow Rate FiO2 12/08/20 16:00 97.9 65 18 102/64 (77) 96 12/08/20 12:00 97.9 76 18 114/75 (88) 99 12/08/20 09:00 Room Air 12/08/20 08:00 97.8 66 18 108/65 (79) 99 12/08/20 04:00 98.2 70 16 125/77 (93) 95 12/08/20 00:00 97.8 65 16 104/59 (74) 95 12/07/20 20:51 Room Air Intake and Output 12/07/20 12/08/20 19:00 07:00 Intake Total 900 ml 910.000 ml Balance 900 ml 910.000 ml Intake Oral 900 ml IV Total 550.000 ml Other 360 ml # Voids 3 Height (Feet): 5 Height (Inches): 7.00 Weight (Pounds): 165 Assessment/Plan Problem List: (1) Injury of lower extremity ICD Codes: S89.90XA - Unspecified injury of unspecified lower leg, initial encounter SNOMED: 693755329 (2) Lower extremity cellulitis ICD Codes: L03.119 - Cellulitis of unspecified part of limb SNOMED: 902875437 Status: progressing Assessment/Plan: cellulitis left leg is improving afebrile homeless needs alf Surekha Aguilar MD Dec 08, 2020 20:17
[2020-12-09] VITALS: BP 118/68
[2020-12-09] MEDS: Vancomycin 1gm/D5W 275ml IVPB SCH ×6 (00:59→17:11)
[2020-12-09 04:00] VITALS: BP 120/65
[2020-12-09 06:44] LABS: BASOPHILS % (AUTO) 1.4 % (0.0-2.0); EOSINOPHILS % (AUTO) 3.2 % (0.0-3.0); HEMATOCRIT 41.6 % (42.0-52.0); HEMOGLOBIN 13.6 G/DL (14.2-18.0); LYMPHOCYTES % (AUTO) 18.5 % (20.0-45.0); MEAN CORPUSCULAR VOLUME 90 FL (80-99); MONOCYTES % (AUTO) 9.6 % (1.0-10.0); NEUTROPHILS % (AUTO) 67.4 % (45.0-75.0); PLATELET COUNT 305 K/UL (150-450); RED BLOOD COUNT 4.61 M/UL (4.70-6.10); RED CELL DISTRIBUTION WIDTH 13.2 % (11.6-14.8); WHITE BLOOD COUNT 7.8 K/UL (4.8-10.8)
[2020-12-09 06:54] LABS: ANION GAP 5 mmol/L (5-15); BLOOD UREA NITROGEN 14 mg/dL (7-18); CALCIUM 9.3 MG/DL (8.5-10.1); CARBON DIOXIDE 32 MMOL/L (21-32); CHLORIDE 100 MMOL/L (98-107); CREATININE 0.9 MG/DL (0.55-1.30); POTASSIUM 4.1 MMOL/L (3.5-5.1); SODIUM 137 MMOL/L (136-145)
[2020-12-09 08:00] VITALS: BP 147/87
--- NOTE | 2020-12-09 08:51 | Surgery Progress Note ---
Surgery Progress Note Subjective Additional Comments feels much better does not want to go yet cellulitis near resolved wants to work with therapy Objective Last 24 Hour Vital Signs Date Time Temp Pulse Resp B/P (MAP) Pulse Ox O2 Delivery O2 Flow Rate FiO2 12/09/20 04:00 98.1 67 16 120/65 (83) 96 12/09/20 00:00 97.9 71 16 118/68 (85) 96 12/08/20 21:00 Room Air 12/08/20 20:00 98.2 73 17 100/62 (75) 96 12/08/20 16:00 97.9 65 18 102/64 (77) 96 12/08/20 12:00 97.9 76 18 114/75 (88) 99 12/08/20 09:00 Room Air I&O Intake and Output 12/08/20 12/09/20 19:00 07:00 Intake Total 1080 ml 480 ml Output Total 2400 ml 850 ml Balance -1320 ml -370 ml Intake Oral 1080 ml 480 ml Output Urine Total 2400 ml 850 ml # Voids 2 Dressing: dry Wound: clean Cardiovascular: RSR Respiratory: clear Abdomen: soft, non-tender, present bowel sounds, non-distended Extremities: no edema, no tenderness, no cyanosis Laboratory Tests Test 12/09/20 06:05 White Blood Count 7.8 K/UL (4.8-10.8) Red Blood Count 4.61 M/UL (4.70-6.10) L Hemoglobin 13.6 G/DL (14.2-18.0) L Hematocrit 41.6 % (42.0-52.0) L Mean Corpuscular Volume 90 FL (80-99) Mean Corpuscular Hemoglobin 29.5 PG (27.0-31.0) Mean Corpuscular Hemoglobin Concent 32.7 G/DL (32.0-36.0) Red Cell Distribution Width 13.2 % (11.6-14.8) Platelet Count 305 K/UL (150-450) Mean Platelet Volume 6.4 FL (6.5-10.1) L Neutrophils (%) (Auto) 67.4 % (45.0-75.0) Lymphocytes (%) (Auto) 18.5 % (20.0-45.0) L Monocytes (%) (Auto) 9.6 % (1.0-10.0) Eosinophils (%) (Auto) 3.2 % (0.0-3.0) H Basophils (%) (Auto) 1.4 % (0.0-2.0) Sodium Level 137 MMOL/L (136-145) Potassium Level 4.1 MMOL/L (3.5-5.1) Chloride Level 100 MMOL/L (98-107) Carbon Dioxide Level 32 MMOL/L (21-32) Anion Gap 5 mmol/L (5-15) Blood Urea Nitrogen 14 mg/dL (7-18) Creatinine 0.9 MG/DL (0.55-1.30) Estimat Glomerular Filtration Rate > 60 mL/min (>60) Glucose Level 89 MG/DL (74-106) Calcium Level 9.3 MG/DL (8.5-10.1) Plan Problems: (1) Injury of lower extremity (2) Lower extremity cellulitis Assessment & Plan: Very pleasant 70-year-old male with worsening left lower ex tremity cellulitis edema and identifiable ulcer on the medial aspect. Patient denies any trauma and unsure etiology of ulcer but on the medial aspect of the distal leg there is a 3 cm x 4 cm eschar with no abscess no drainage. Wound likely initial etiology of the infection potentially related to trauma. Patient has erythema tenderness warmth induration of the distal leg to the ankle. The foot seems fairly spared. Midpoint apex seems to be the wound identified on the medial aspect. Does not track higher than the mid leg. Tender difficult to walk muscle compartments okay. Wound washed with normal saline. Apply Thera honey Optifoam dressing. Keep lower extremity elevated while in bed. Okay to ambulate. IV antibiotics per PCP or infectious disease. Will need some time for resolving cellulitis. No abscess noted at this time. No surgical intervention planned. Will monitor for potential abscess formation phlegmon. Thank you for let me participate in patient's care will follow with recommendations. doing well cont current tx improving cont tx d/c planning ax as per Vaughn Villanueva Dec 09, 2020 08:51
--- NOTE | 2020-12-09 09:02 | NUR ---
NURSE NOTES: Patient awake, alert x4; on room air, no sing of distress and shortness of breath; Urinal within reach; side rails up x2, breaks engaged, bed at lowest position; call light within reach; will keep monitoring.
--- NOTE | 2020-12-09 10:47 | Infectious Diseases Prog Note ---
Assessment/Plan Assessment/Plan IMPRESSION: Sepsis, improving Cellulitis of left leg - Group A strep in culture Chronic neuropathy, BPH. Homeless. RECOMMENDATION: Continue vancomycin Will f/u wound culture Subjective ROS Limited/Unobtainable: No Constitutional: Reports: no symptoms Respiratory: Reports: no symptoms Gastrointestinal/Abdominal: Reports: no symptoms Genitourinary: Reports: no symptoms Musculoskeletal: Reports: pain, other - in both legs Allergies: Coded Allergies: No Known Allergies (Unverified , 12/03/20) Objective Last 24 Hour Vital Signs Date Time Temp Pulse Resp B/P (MAP) Pulse Ox O2 Delivery O2 Flow Rate FiO2 12/09/20 08:00 97.8 80 18 147/87 (107) 97 12/09/20 04:00 98.1 67 16 120/65 (83) 96 12/09/20 00:00 97.9 71 16 118/68 (85) 96 12/08/20 21:00 Room Air 12/08/20 20:00 98.2 73 17 100/62 (75) 96 12/08/20 16:00 97.9 65 18 102/64 (77) 96 12/08/20 12:00 97.9 76 18 114/75 (88) 99 Height (Feet): 5 Height (Inches): 7.00 Weight (Pounds): 165 HEENT: mucous membranes moist Respiratory/Chest: lungs clear Cardiovascular: normal rate Abdomen: soft, non tender Extremities: no edema Skin: other - decrease erythema, improving ulcera of left leg Microbiology Date/Time Source Procedure Growth Status 12/07/20 00:40 Leg Left Gram Stain - Final Resulted 12/07/20 00:40 Wound Culture - Preliminary Streptococcus Group A Gram Positive Cocci Resulted Laboratory Tests Test 12/09/20 06:05 White Blood Count 7.8 K/UL (4.8-10.8) Red Blood Count 4.61 M/UL (4.70-6.10) L Hemoglobin 13.6 G/DL (14.2-18.0) L Hematocrit 41.6 % (42.0-52.0) L Mean Corpuscular Volume 90 FL (80-99) Mean Corpuscular Hemoglobin 29.5 PG (27.0-31.0) Mean Corpuscular Hemoglobin Concent 32.7 G/DL (32.0-36.0) Red Cell Distribution Width 13.2 % (11.6-14.8) Platelet Count 305 K/UL (150-450) Mean Platelet Volume 6.4 FL (6.5-10.1) L Neutrophils (%) (Auto) 67.4 % (45.0-75.0) Lymphocytes (%) (Auto) 18.5 % (20.0-45.0) L Monocytes (%) (Auto) 9.6 % (1.0-10.0) Eosinophils (%) (Auto) 3.2 % (0.0-3.0) H Basophils (%) (Auto) 1.4 % (0.0-2.0) Sodium Level 137 MMOL/L (136-145) Potassium Level 4.1 MMOL/L (3.5-5.1) Chloride Level 100 MMOL/L (98-107) Carbon Dioxide Level 32 MMOL/L (21-32) Anion Gap 5 mmol/L (5-15) Blood Urea Nitrogen 14 mg/dL (7-18) Creatinine 0.9 MG/DL (0.55-1.30) Estimat Glomerular Filtration Rate > 60 mL/min (>60) Glucose Level 89 MG/DL (74-106) Calcium Level 9.3 MG/DL (8.5-10.1) Current Medications Medications (Trade) Dose Ordered Sig/Jeny Route PRN Reason Start Time Stop Time Status Last Admin Dose Admin Acetaminophen (Tylenol) 500 mg Q4H PRN ORAL Temp >100.5/mild pain 1-3 12/04/20 00:00 01/03/21 00:00 12/07/20 08:47 Vancomycin HCl ([facility] pharmacy to dose) 1 ea DAILY PRN MISC Per rx protocol 12/04/20 13:00 01/03/21 12:59 Vancomycin HCl 1 gm/Dextrose 275 ml @ 183.708 mls/hr Q8HR@0100,0900,1700 IVPB 12/06/20 09:00 12/11/20 08:59 12/09/20 09:52 Donte Blum MD Dec 09, 2020 10:47
[2020-12-09] MEDS: Acetaminophen 500mg (ES) tab ORAL PRN (11:28)
[2020-12-09 12:00] VITALS: BP 118/70
--- NOTE | 2020-12-09 14:27 | NUR ---
CASE MANAGEMENT:REVIEW 12/09/20 SI: SEPSIS. CELLULITIS. NEUROPATHY 97.8 80 18 147/87 97% ON RA H/H-13.6/41.6 IS: IV VANCOMYCIN Q8HRS TYLENOL PO Q4HRS PRN : MED/SURG STATUS DCP: ? PLAN: DRAFTER FOR HOMELESSNESS NEEDS PT EVAL PRIOR TO DISCHARGE
--- NOTE | 2020-12-09 15:53 | Cardiac Electrophysiology PN ---
Assessment/Plan Assessment/Plan 1. Sinus tachycardia due to sepsis on IV vancomycin. ECho EF 45% and No vegetaion reported No fib 2. Elevated white count likely due to Leg cellulitis. 3. History of shoulder surgery. 4. Agitation Subjective Subjective No CP or SOB. On iv Abx. Leg cellulitis better. No CP or SOB Objective Last 24 Hour Vital Signs Date Time Temp Pulse Resp B/P (MAP) Pulse Ox O2 Delivery O2 Flow Rate FiO2 12/09/20 11:58 97.8 12/09/20 09:00 Room Air 12/09/20 08:00 97.8 80 18 147/87 (107) 97 12/09/20 04:00 98.1 67 16 120/65 (83) 96 12/09/20 00:00 97.9 71 16 118/68 (85) 96 12/08/20 21:00 Room Air 12/08/20 20:00 98.2 73 17 100/62 (75) 96 12/08/20 16:00 97.9 65 18 102/64 (77) 96 Intake and Output 12/08/20 12/09/20 19:00 07:00 Intake Total 1080 ml 480 ml Output Total 2400 ml 850 ml Balance -1320 ml -370 ml Intake Oral 1080 ml 480 ml Output Urine Total 2400 ml 850 ml # Voids 2 Laboratory Tests Test 12/09/20 06:05 White Blood Count 7.8 K/UL (4.8-10.8) Red Blood Count 4.61 M/UL (4.70-6.10) L Hemoglobin 13.6 G/DL (14.2-18.0) L Hematocrit 41.6 % (42.0-52.0) L Mean Corpuscular Volume 90 FL (80-99) Mean Corpuscular Hemoglobin 29.5 PG (27.0-31.0) Mean Corpuscular Hemoglobin Concent 32.7 G/DL (32.0-36.0) Red Cell Distribution Width 13.2 % (11.6-14.8) Platelet Count 305 K/UL (150-450) Mean Platelet Volume 6.4 FL (6.5-10.1) L Neutrophils (%) (Auto) 67.4 % (45.0-75.0) Lymphocytes (%) (Auto) 18.5 % (20.0-45.0) L Monocytes (%) (Auto) 9.6 % (1.0-10.0) Eosinophils (%) (Auto) 3.2 % (0.0-3.0) H Basophils (%) (Auto) 1.4 % (0.0-2.0) Sodium Level 137 MMOL/L (136-145) Potassium Level 4.1 MMOL/L (3.5-5.1) Chloride Level 100 MMOL/L (98-107) Carbon Dioxide Level 32 MMOL/L (21-32) Anion Gap 5 mmol/L (5-15) Blood Urea Nitrogen 14 mg/dL (7-18) Creatinine 0.9 MG/DL (0.55-1.30) Estimat Glomerular Filtration Rate > 60 mL/min (>60) Glucose Level 89 MG/DL (74-106) Calcium Level 9.3 MG/DL (8.5-10.1) Microbiology Date/Time Source Procedure Growth Status 12/07/20 00:40 Leg Left Gram Stain - Final Resulted 12/07/20 00:40 Wound Culture - Preliminary Streptococcus Group A Gram Positive Cocci Resulted Objective HEAD AND NECK: Shows no JVD. LUNGS: Clear. CARDIOVASCULAR: Regular S1 and S2 with no gallop. ABDOMEN: Soft. EXTREMITIES: Cellulitis of the left leg. Damon Abraham MD Dec 09, 2020 15:52
[2020-12-09 16:00] VITALS: BP 100/58
--- NOTE | 2020-12-09 19:36 | NUR ---
NURSE HAND-OFF: Important Events on Shift:New IV line insersion; antibiotics Patient Status: Diet: Pending Orders: Pending Results/Labs: Pending MD notification: Latest Vital Signs: Temperature 98.0 , Pulse 65 , B/P 100 /58 , Respiratory Rate 20 , O2 SAT 95 , Simple Mask, O2 Flow Rate . Vital Sign Comment: Latest Batista Fall Score: 35 Fall Risk: Medium Risk Safety Measures: Call light Within Reach, Bed Alarm Zone 1, Side Rails Side Rails x2, Bed position Low and Locked. Fall Precautions: Patient Fall Education Report given to .
[2020-12-09 20:00] VITALS: BP 117/68
--- NOTE | 2020-12-09 21:43 | General Progress Note ---
Subjective ROS Limited/Unobtainable: Yes Allergies: Coded Allergies: No Known Allergies (Unverified , 12/03/20) Objective Last 24 Hour Vital Signs Date Time Temp Pulse Resp B/P (MAP) Pulse Ox O2 Delivery O2 Flow Rate FiO2 12/09/20 16:00 98.0 65 20 100/58 (72) 95 12/09/20 12:00 97.9 67 20 118/70 (86) 97 12/09/20 11:58 97.8 12/09/20 09:00 Room Air 12/09/20 08:00 97.8 80 18 147/87 (107) 97 12/09/20 04:00 98.1 67 16 120/65 (83) 96 12/09/20 00:00 97.9 71 16 118/68 (85) 96 Intake and Output 12/08/20 12/09/20 19:00 07:00 Intake Total 1080 ml 480 ml Output Total 2400 ml 850 ml Balance -1320 ml -370 ml Intake Oral 1080 ml 480 ml Output Urine Total 2400 ml 850 ml # Voids 2 Laboratory Tests 12/09/20 06:05: White Blood Count 7.8, Red Blood Count 4.61L, Hemoglobin 13.6L, Hematocrit 41.6L , Mean Corpuscular Volume 90, Mean Corpuscular Hemoglobin 29.5, Mean Corpuscular Hemoglobin Concent 32.7, Red Cell Distribution Width 13.2, Platelet Count 305, Mean Platelet Volume 6.4L, Neutrophils (%) (Auto) 67.4, Lymphocytes (%) (Auto) 18.5L, Monocytes (%) (Auto) 9.6, Eosinophils (%) (Auto) 3.2H, Basophils (%) (Auto) 1.4, Sodium Level 137, Potassium Level 4.1, Chloride Level 100, Carbon Dioxide Level 32, Anion Gap 5, Blood Urea Nitrogen 14, Creatinine 0.9, Estimat Glomerular Filtration Rate > 60, Glucose Level 89, Calcium Level 9.3 Height (Feet): 5 Height (Inches): 7.00 Weight (Pounds): 165 Assessment/Plan Problem List: (1) Injury of lower extremity ICD Codes: S89.90XA - Unspecified injury of unspecified lower leg, initial encounter SNOMED: 514139119 (2) Lower extremity cellulitis ICD Codes: L03.119 - Cellulitis of unspecified part of limb SNOMED: 067707413 Status: progressing Assessment/Plan: cellulitis left leg is improving abx per id no acute events Surekha Aguilar MD Dec 09, 2020 21:43
[2020-12-10] VITALS (7 sets, daily range): BP systolic 99–133; BP diastolic 51–83
[2020-12-10] MEDS: Vancomycin 1gm/D5W 275ml IVPB SCH ×6 (01:03→17:12)
--- NOTE | 2020-12-10 07:15 | NUR ---
NURSE HAND-OFF: Important Events on Shift:WNL Patient Status: Diet: REG Pending Orders: Pending Results/Labs: Pending MD notification: Latest Vital Signs: Temperature 98.6 , Pulse 75 , B/P 133 /67 , Respiratory Rate 18 , O2 SAT 96 , Simple Mask, O2 Flow Rate . Vital Sign Comment: WNL Latest Batista Fall Score: 35 Fall Risk: Medium Risk Safety Measures: Call light Within Reach, Bed Alarm Zone 1, Side Rails Side Rails x2, Bed position Low and Locked. Fall Precautions: Patient Fall Education Report given to SELENE Aguilar.
--- NOTE | 2020-12-10 07:35 | NUR ---
NURSE NOTES: RECEIVED PATIENT A/A/OX4 IN BED WITH HOB ELEVATED. TOLERATED FOOD INTAKE WELL. NO C/O PAIN/DISCOMFORT NOTED. NO ACUTE APPARENT DISTRESS NOTED. PIV ACCESS. PATENT AND INTACT. KEPT BED IN THE LOWEST POSITION. SIDERAILS ARE UP X3. CALL LIGHT IS WITHIN REACH. WILL CONT TO MONITOR.
--- NOTE | 2020-12-10 07:37 | General Progress Note ---
Subjective Date patient seen: Dec 10, 2020 Time patient seen: 06:00 - am Allergies: Coded Allergies: No Known Allergies (Unverified , 12/03/20) Subjective Constitutional: Reports: no symptoms HEENT: Reports: no symptoms Cardiovascular: Reports: no symptoms Respiratory: Reports: no symptoms Gastrointestinal/Abdominal: Reports: no symptoms Genitourinary: Reports: no symptoms Neurologic/Psychiatric: Reports: no symptoms Endocrine: Reports: no symptoms Hematologic/Lymphatic: Reports: no symptoms Subjective No new complaints at this time. Patient resting in bed no signs of pain or distress. Objective Last 24 Hour Vital Signs Date Time Temp Pulse Resp B/P (MAP) Pulse Ox O2 Delivery O2 Flow Rate FiO2 12/10/20 04:00 98.6 75 18 133/67 (89) 96 12/10/20 00:00 98.0 73 16 120/66 (84) 96 12/09/20 21:00 Room Air 12/09/20 20:00 98.1 71 16 117/68 (84) 98 12/09/20 16:00 98.0 65 20 100/58 (72) 95 12/09/20 12:00 97.9 67 20 118/70 (86) 97 12/09/20 11:58 97.8 12/09/20 09:00 Room Air 12/09/20 08:00 97.8 80 18 147/87 (107) 97 Intake and Output 12/09/20 12/10/20 19:00 07:00 Intake Total 1454.832 ml 1867.416 ml Output Total 400 ml 1000 ml Balance 1054.832 ml 867.416 ml Intake Oral 720 ml 1500 ml IV Total 734.832 ml 367.416 ml Output Urine Total 400 ml 1000 ml # Voids 2 # Bowel Movements 1 Height (Feet): 5 Height (Inches): 7.00 Weight (Pounds): 165 Objective General Appearance: no apparent distress, alert EENT: PERRL/EOMI, normal ENT inspection Neck: non-tender, normal alignment Cardiovascular: normal rate, regular rhythm Respiratory/Chest: lungs clear, normal breath sounds Abdomen: non tender, soft Extremities: swelling Edema: trace edema Neurologic: alert, oriented x 3 Assessment/Plan Assessment/Plan: (1) Left LE pain (2) Cellulitis Patient to be continued on Tylenol D/w Dr. Flores and he concurred. Serafin Grubbs Dec 10, 2020 07:37
--- NOTE | 2020-12-10 10:56 | Surgery Progress Note ---
Surgery Progress Note Subjective Symptoms: improved, tolerating diet, passing flatus, BM Objective Last 24 Hour Vital Signs Date Time Temp Pulse Resp B/P (MAP) Pulse Ox O2 Delivery O2 Flow Rate FiO2 12/10/20 09:00 Room Air 12/10/20 08:00 98.3 77 20 126/83 (97) 98 12/10/20 04:00 98.6 75 18 133/67 (89) 96 12/10/20 00:00 98.0 73 16 120/66 (84) 96 12/09/20 21:00 Room Air 12/09/20 20:00 98.1 71 16 117/68 (84) 98 12/09/20 16:00 98.0 65 20 100/58 (72) 95 12/09/20 12:00 97.9 67 20 118/70 (86) 97 12/09/20 11:58 97.8 I&O Intake and Output 12/09/20 12/10/20 19:00 07:00 Intake Total 1454.832 ml 1867.416 ml Output Total 400 ml 1000 ml Balance 1054.832 ml 867.416 ml Intake Oral 720 ml 1500 ml IV Total 734.832 ml 367.416 ml Output Urine Total 400 ml 1000 ml # Voids 2 # Bowel Movements 1 Dressing: dry Wound: clean Cardiovascular: RSR Respiratory: clear Abdomen: soft, flat, non-tender, present bowel sounds, other, non-distended Extremities: no edema, no tenderness, no cyanosis, pulses, other Plan Problems: (1) Injury of lower extremity (2) Lower extremity cellulitis Assessment & Plan: Very pleasant 70-year-old male with worsening left lower extremity cellulitis edema and identifiable ulcer on the medial aspect. Patient denies any trauma and unsure etiology of ulcer but on the medial aspect of the distal leg there is a 3 cm x 4 cm eschar with no abscess no drainage. Wound likely initial etiology of the infection potentially related to trauma. Patient has erythema tenderness warmth induration of the distal leg to the ankle. The foot seems fairly spared. Midpoint apex seems to be the wound identified on the medial aspect. Does not track higher than the mid leg. Tender difficult to walk muscle compartments okay. Wound washed with normal saline. Apply Thera honey Optifoam dressing. Keep lower extremity elevated while in bed. Okay to ambulate. IV antibiotics per PCP or infectious disease. Will need some time for resolving cellulitis. No abscess noted at this time. No surgical intervention planned. Will monitor for potential abscess formation phlegmon. Thank you for let me participate in patient's care will follow with recommendations. doing well cont current tx improving cont tx d/c planning ax as per Vaughn Villanueva Dec 10, 2020 10:56
--- NOTE | 2020-12-10 13:54 | Cardiac Electrophysiology PN ---
Assessment/Plan Assessment/Plan 1. Sinus tachycardia due to sepsis on IV vancomycin. Echo EF 45% and No vegetation reported No fib 2. Elevated white count likely due to Leg cellulitis. 3. History of shoulder surgery. 4. Agitation DW RN Subjective Subjective No CP or SOB. On iv Abx. Leg cellulitis better. Objective Last 24 Hour Vital Signs Date Time Temp Pulse Resp B/P (MAP) Pulse Ox O2 Delivery O2 Flow Rate FiO2 12/10/20 12:08 98.1 72 20 109/75 (86) 97 12/10/20 09:00 Room Air 12/10/20 08:00 98.3 77 20 126/83 (97) 98 12/10/20 04:00 98.6 75 18 133/67 (89) 96 12/10/20 00:00 98.0 73 16 120/66 (84) 96 12/09/20 21:00 Room Air 12/09/20 20:00 98.1 71 16 117/68 (84) 98 12/09/20 16:00 98.0 65 20 100/58 (72) 95 Intake and Output 12/09/20 12/10/20 19:00 07:00 Intake Total 1454.832 ml 1867.416 ml Output Total 400 ml 1000 ml Balance 1054.832 ml 867.416 ml Intake Oral 720 ml 1500 ml IV Total 734.832 ml 367.416 ml Output Urine Total 400 ml 1000 ml # Voids 2 # Bowel Movements 1 Objective HEAD AND NECK: Shows no JVD. LUNGS: Clear. CARDIOVASCULAR: Regular S1 and S2 with no gallop. ABDOMEN: Soft. EXTREMITIES: Cellulitis of the left leg. Damon Abraham MD Dec 10, 2020 13:54
--- NOTE | 2020-12-10 19:06 | NUR ---
NURSE HAND-OFF: Important Events on Shift:[took a shower; kept calm and comfortable] Patient Status: [stable] Diet: [reg] Pending Orders: [vanco trough] Pending Results/Labs:[1600 12/11] Pending MD notification:[] Latest Vital Signs: Temperature 98.2 , Pulse 76 , B/P 131 /82 , Respiratory Rate 21 , O2 SAT 97 , Simple Mask, O2 Flow Rate . Vital Sign Comment: [] Latest Batisat Fall Score: 35 Fall Risk: Medium Risk Safety Measures: Call light Within Reach, Bed Alarm Zone 1, Side Rails Side Rails x2, Bed position Low and Locked. Fall Precautions: Patient Fall Education Report given to [maci].
--- NOTE | 2020-12-10 19:51 | NUR ---
NURSE NOTES: Patient in bed ,awake, alert and verbally responsive. IV site on the right forearm. Kept clean and comfortable .Provided safe environment. Kept clean and comfortable. Skin is warm and dry to touch. Abdomen is soft and nondistended. Respiration is even and unlabored. No complaint of pain or discomfort noted. Call light is at bedside. Will continue plan of care.
--- NOTE | 2020-12-10 20:54 | General Progress Note ---
Subjective ROS Limited/Unobtainable: Yes Allergies: Coded Allergies: No Known Allergies (Unverified , 12/03/20) Objective Last 24 Hour Vital Signs Date Time Temp Pulse Resp B/P (MAP) Pulse Ox O2 Delivery O2 Flow Rate FiO2 12/10/20 16:06 98.2 76 21 131/82 (98) 97 12/10/20 12:08 98.1 72 20 109/75 (86) 97 12/10/20 09:00 Room Air 12/10/20 08:00 98.3 77 20 126/83 (97) 98 12/10/20 04:00 98.6 75 18 133/67 (89) 96 12/10/20 00:00 98.0 73 16 120/66 (84) 96 12/09/20 21:00 Room Air Intake and Output 12/09/20 12/10/20 19:00 07:00 Intake Total 1454.832 ml 1867.416 ml Output Total 400 ml 1000 ml Balance 1054.832 ml 867.416 ml Intake Oral 720 ml 1500 ml IV Total 734.832 ml 367.416 ml Output Urine Total 400 ml 1000 ml # Voids 2 # Bowel Movements 1 Height (Feet): 5 Height (Inches): 7.00 Weight (Pounds): 165 Assessment/Plan Problem List: (1) Injury of lower extremity ICD Codes: S89.90XA - Unspecified injury of unspecified lower leg, initial encounter SNOMED: 725685313 (2) Lower extremity cellulitis ICD Codes: L03.119 - Cellulitis of unspecified part of limb SNOMED: 255384261 Status: progressing Assessment/Plan: cellulitis left leg is much improved dc in Surekha Mendoza MD Dec 10, 2020 20:54
[2020-12-11] MEDS: Vancomycin 1gm/D5W 275ml IVPB SCH ×4 (01:00→10:36)
[2020-12-11 04:00] VITALS: BP 98/54
--- NOTE | 2020-12-11 07:17 | NUR ---
NURSE HAND-OFF: Important Events on Shift:WNL Patient Status: WNL Diet: REG Pending Orders: Pending Results/Labs: Pending MD notification: Latest Vital Signs: Temperature 98.2 , Pulse 67 , B/P 98 /54 , Respiratory Rate 18 , O2 SAT 98 , Simple Mask, O2 Flow Rate . Vital Sign Comment: WNL Latest Batista Fall Score: 35 Fall Risk: Medium Risk Safety Measures: Call light Within Reach, Bed Alarm Zone 1, Side Rails Side Rails x2, Bed position Low and Locked. Fall Precautions: Patient Fall Education Report given to NATHANIEL De La Cruz.
[2020-12-11 08:00] VITALS: BP 133/69
--- NOTE | 2020-12-11 08:03 | General Progress Note ---
Subjective Date patient seen: Dec 11, 2020 Time patient seen: 07:00 - am Allergies: Coded Allergies: No Known Allergies (Unverified , 12/03/20) Subjective Constitutional: Reports: no symptoms HEENT: Reports: no symptoms Cardiovascular: Reports: no symptoms Respiratory: Reports: no symptoms Gastrointestinal/Abdominal: Reports: no symptoms Genitourinary: Reports: no symptoms Neurologic/Psychiatric: Reports: no symptoms Endocrine: Reports: no symptoms Hematologic/Lymphatic: Reports: no symptoms Subjective Patient is showing no signs of pain or distress with no new complaints at this time. Objective Last 24 Hour Vital Signs Date Time Temp Pulse Resp B/P (MAP) Pulse Ox O2 Delivery O2 Flow Rate FiO2 12/11/20 04:00 98.2 67 18 98/54 (69) 98 12/10/20 23:44 98.8 68 20 99/51 (67) 99 12/10/20 21:00 Room Air 12/10/20 20:00 98.0 71 20 114/69 (84) 97 12/10/20 16:06 98.2 76 21 131/82 (98) 97 12/10/20 12:08 98.1 72 20 109/75 (86) 97 12/10/20 09:00 Room Air Intake and Output 12/10/20 12/11/20 19:00 07:00 Intake Total 995.000 ml 1200 ml Output Total 1600 ml Balance 995.000 ml -400 ml Intake Oral 720 ml 1200 ml IV Total 275.000 ml Output Urine Total 1600 ml # Voids 1 2 Height (Feet): 5 Height (Inches): 7.00 Weight (Pounds): 165 Objective General Appearance: no apparent distress, alert EENT: PERRL/EOMI, normal ENT inspection Neck: non-tender, normal alignment Cardiovascular: normal rate, regular rhythm Respiratory/Chest: lungs clear, normal breath sounds Abdomen: non tender, soft Extremities: swelling Edema: trace edema Neurologic: alert, oriented x 3 Assessment/Plan Assessment/Plan: (1) Left LE pain (2) Cellulitis Patient to be continued on Tylenol D/w Dr. Flores and he concurred. Serafin Grubbs Dec 11, 2020 08:03
[2020-12-11 12:00] VITALS: BP 117/70
--- NOTE | 2020-12-11 12:00 | NUR ---
NURSE NOTES: Called PT but no answer, awaiting callback.
--- NOTE | 2020-12-11 12:15 | Cardiac Electrophysiology PN ---
Assessment/Plan Assessment/Plan 1. Sinus tachycardia due to sepsis. Echo EF 45% and No vegetation reported No fib 2. Elevated white count likely due to Leg cellulitis. 3. History of shoulder surgery. 4. Agitation DW RN Subjective Subjective No CP or SOB. On iv Abx. for Leg cellulitis better. Objective Last 24 Hour Vital Signs Date Time Temp Pulse Resp B/P (MAP) Pulse Ox O2 Delivery O2 Flow Rate FiO2 12/11/20 09:00 Room Air 12/11/20 08:00 97.6 66 18 133/69 (90) 98 12/11/20 04:00 98.2 67 18 98/54 (69) 98 12/10/20 23:44 98.8 68 20 99/51 (67) 99 12/10/20 21:00 Room Air 12/10/20 20:00 98.0 71 20 114/69 (84) 97 12/10/20 16:06 98.2 76 21 131/82 (98) 97 Intake and Output 12/10/20 12/11/20 19:00 07:00 Intake Total 995.000 ml 1200 ml Output Total 1600 ml Balance 995.000 ml -400 ml Intake Oral 720 ml 1200 ml IV Total 275.000 ml Output Urine Total 1600 ml # Voids 1 2 Objective HEAD AND NECK: No JVD. LUNGS: Clear. CARDIOVASCULAR: Regular S1 and S2 with no gallop. ABDOMEN: Soft. EXTREMITIES: Cellulitis of the left leg. Damon Abraham MD Dec 11, 2020 12:15
--- NOTE | 2020-12-11 12:36 | Surgery Progress Note ---
Surgery Progress Note Subjective Symptoms: improved, pain absent, tolerating diet, voiding well, passing flatus, BM Objective Last 24 Hour Vital Signs Date Time Temp Pulse Resp B/P (MAP) Pulse Ox O2 Delivery O2 Flow Rate FiO2 12/11/20 09:00 Room Air 12/11/20 08:00 97.6 66 18 133/69 (90) 98 12/11/20 04:00 98.2 67 18 98/54 (69) 98 12/10/20 23:44 98.8 68 20 99/51 (67) 99 12/10/20 21:00 Room Air 12/10/20 20:00 98.0 71 20 114/69 (84) 97 12/10/20 16:06 98.2 76 21 131/82 (98) 97 I&O Intake and Output 12/10/20 12/11/20 19:00 07:00 Intake Total 995.000 ml 1200 ml Output Total 1600 ml Balance 995.000 ml -400 ml Intake Oral 720 ml 1200 ml IV Total 275.000 ml Output Urine Total 1600 ml # Voids 1 2 Dressing: dry Wound: clean Cardiovascular: RSR Respiratory: clear Abdomen: soft, flat, non-tender, present bowel sounds, non-distended Extremities: edema, no tenderness, no cyanosis, pulses, other Plan Problems: (1) Injury of lower extremity (2) Lower extremity cellulitis Assessment & Plan: Very pleasant 70-year-old male with worsening left lower extremity cellulitis edema and identifiable ulcer on the medial aspect. Patient denies any trauma and unsure etiology of ulcer but on the medial aspect of the distal leg there is a 3 cm x 4 cm eschar with no abscess no drainage. Wound likely initial etiology of the infection potentially related to trauma. Patient has erythema tenderness warmth induration of the distal leg to the ankle. The foot seems fairly spared. Midpoint apex seems to be the wound identified on the medial aspect. Does not track higher than the mid leg. Tender difficult to walk muscle compartments okay. Wound washed with normal saline. Apply Thera honey Optifoam dressing. Keep lower extremity elevated while in bed. Okay to ambulate. IV antibiotics per PCP or infectious disease. Will need some time for resolving cellulitis. No abscess noted at this time. No surgical i ntervention planned. Will monitor for potential abscess formation phlegmon. Thank you for let me participate in patient's care will follow with recommendations. doing well cont current tx improving cont tx d/c planning ax as per Vaughn Villanueva Dec 11, 2020 12:36
--- NOTE | 2020-12-11 13:23 | Infectious Diseases Prog Note ---
Assessment/Plan Assessment/Plan IMPRESSION: Sepsis, improving Cellulitis of left leg - Group A strep in culture Chronic neuropathy, BPH. Homeless. RECOMMENDATION: Discontinue vancomycin Can be discharged with PO Amoxicillin X 3 days Subjective ROS Limited/Unobtainable: Yes Constitutional: Reports: no symptoms Cardiovascular: Reports: no symptoms Gastrointestinal/Abdominal: Reports: no symptoms Musculoskeletal: Reports: pain, other - in both legs Allergies: Coded Allergies: No Known Allergies (Unverified , 12/03/20) Objective Last 24 Hour Vital Signs Date Time Temp Pulse Resp B/P (MAP) Pulse Ox O2 Delivery O2 Flow Rate FiO2 12/11/20 12:00 97.6 70 18 117/70 (86) 97 12/11/20 09:00 Room Air 12/11/20 08:00 97.6 66 18 133/69 (90) 98 12/11/20 04:00 98.2 67 18 98/54 (69) 98 12/10/20 23:44 98.8 68 20 99/51 (67) 99 12/10/20 21:00 Room Air 12/10/20 20:00 98.0 71 20 114/69 (84) 97 12/10/20 16:06 98.2 76 21 131/82 (98) 97 Height (Feet): 5 Height (Inches): 7.00 Weight (Pounds): 165 General Appearance: no acute distress HEENT: mucous membranes moist Respiratory/Chest: lungs clear Cardiovascular: normal rate Abdomen: soft, non tender Extremities: no edema Skin: other - reolved erythema of left leg, healing ulcer Current Medications Medications (Trade) Dose Ordered Sig/Jeny Route PRN Reason Start Time Stop Time Status Last Admin Dose Admin Acetaminophen (Tylenol) 500 mg Q4H PRN ORAL Temp >100.5/mild pain 1-3 12/04/20 00:00 01/03/21 00:00 12/09/20 11:28 Vancomycin HCl (Vanco pharmacy to dose) 1 ea DAILY PRN MISC Per rx protocol 12/04/20 13:00 01/03/21 12:59 Vancomycin HCl 1 gm/Dextrose 275 ml @ 183.708 mls/hr Q8HR@0100,0900,1700 IVPB 12/06/20 09:00 12/12/20 08:59 12/11/20 10:36 Donte Blum MD 1, 2021 13:23
--- NOTE | 2020-12-11 14:02 | NUR ---
NURSE NOTES: Called and left a voicemail for the physical therapist because patient needs PT before discharge. Awaiting callback.
--- NOTE | 2020-12-11 14:09 | NUR ---
NURSE NOTES: Called case management but no answer. Unable to leave voicemail.
--- NOTE | 2020-12-11 14:35 | NUR ---
NURSE NOTES: Patient refused physical therapist to evaluate him prior to discharge, patient refused to accept the prescription written by Dr. Yusuf Blum as he stated that he did not need it. I insisted that he take the paper prescription to prevent re-infection and complications and although he took it seems as if he will not follow through with getting / taking the prescription as prescribed by Dr. Blum despite education and encouragement provided. Patient alert and oriented x4, verbalizes needs well, states name, , date, current events, names president and what he had for breakfast accurately. Patient in stable condition, ambulates well, steady gait, bears own weight, refuses assistive devices that were offered, refused pictures of skin alterations from being taken and refused further assessment. He is irritable and displays impatient behavior insisting that he would much rather leave now than to stay any longer. He stated, "The care i received here yesterday was terrible. I want to leave." Patient gathered all his belongings and with every item accounted for, AMA form signed by patient. IV catheters on left upper arm and right forearm removed, patient ID band removed and place in appropriate receptacle. Patient left without any incident noted as he left out of the doors of [facility].
--- NOTE | 2020-12-11 14:40 | NUR ---
NURSE NOTES: Patient left AMA out of hospital via ambulation.
--- NOTE | 2020-12-12 14:09 | Discharge Summary ---
Discharge Summary Discharge Summary _ Date of admission: 12/03/2020 Patient left AGAINST MEDICAL ADVICE on 11/12/2020 History of Present Illness and Brief Hospital Course Mr. Olivera is a 70-year-old male with past medical history of neuropathy who presented to the ED for evaluation of left leg swelling and rash x3 weeks. Patient was afebrile and hemodynamically stable, and neurologically intact on examination. Patient had notable swelling to the left lower extremity, with cellulitis, and draining superficial cutaneous abscess. There was no palpable crepitus. Patient was given Tdap and was started on broad-spectrum antibiotics. Venous duplex ultrasound of legs was negative for DVT. Patient was admitted to the hospital for further management. Patient was instructed to keep lower extremity elevated while in bed. No surgical intervention was planned at this time. Patient was continued on antibiotics. Patient was also found to be tachycardic due to sepsis. Patient was already on IV vancomycin at this point. Echocardiogram showed ejection fraction of 45% without signs of vegetation. Wound culture grew out Streptococcus group A. Blood cultures were negative. Patient was awaiting an evaluation by a physical therapist before discharge. However, patient became agitated and requested to leave AMA without being evaluated by physical therapist prior to discharge. Patient did take the paper prescription for the oral amoxicillin. IV vancomycin was discontinued. Patient signed the AMA form and left the facility. Consultants: Infectious disease Dr. Blum Cardiology Dr. Abraham Pain management [facility] Dr. Vasquez Final diagnoses Sinus tachycardia Leukocytosis Sepsis Agitation Chronic neuropathy BPH Homelessness Left leg cellulitis. I have been assigned to dictate discharge summary for this account. I was not involved in the patient's management Jake Patel Dec 12, 2020 14:09
== END 2020-12-11 14:40 | disposition left against medical advice (07) | DRG 720 ==
LOC: EDBD 19:43 → EMR 19:49 → 4E 22:04 → EDBEDREQ 22:18
DX: A41.9 Sepsis, unspecified organism (principal); L03.116 Cellulitis of left lower limb; G62.9 Polyneuropathy, unspecified; N40.0 Benign prostatic hyperplasia without lower urinary tract symptoms; Z59.0 Homelessness; K21.9 Gastro-esophageal reflux disease without esophagitis; R45.1 Restlessness and agitation; G89.29 Other chronic pain; M54.9 Dorsalgia, unspecified
CPT/HCPCS: 36415; 80048; 80053; 80202; 83605; 83880; 85007; 85025; 85610; 85730; 87040; 87070; 87081; 87205; 90471; 90715; 93005; 93306; 93971; 96361; 96365; 96367; 99285; J7030